=== PATIENT | female | born 1980 | race Caucasian/White ===

== ENCOUNTER 2016-08-28 09:48 | Emergency (ER) | payer MEDICAID ==
--- NOTE | 2016-08-28 09:56 | EDPHY ---
H & P Time Seen by Provider: 08/28/16 09:53 HPI/ROS: CHIEF COMPLAINT: Left middle digit laceration HISTORY OF PRESENT ILLNESS: 36-year-old female HIV positive with undetectable viral load, up-to-date tetanus, arrives via ambulance after she sustained accidental laceration to her left middle digit dorsal aspect at the PIP joint when she was carrying her laundry basket and impacted a metal object. Occurred shortly prior to arrival. No flexor or extensor deficits. No paresthesia. PHYSICAL EXAM (Prior to examination, patient consented to physical exam, hands were washed and my usual and customary physical exam procedures followed) 1) GENERAL: Well-developed, well-nourished, alert and oriented. Appears to be in no acute distress. 2) HEAD: Normocephalic 3) HEENT: sclera anicteric 4) LUNGS: Breathing comfortably. 5) SKIN: left middle digit dorsal aspect PIP joint flap laceration measuring 1 cm with viable flap. 6) MUSCULOSKELETAL: extensor function at the MCP PIP D IP is intact with no deficits 7) NEUROLOGIC: Full sensation Constitutional: Initial Vital Signs Temperature (C) 36.9 C 08/28/16 09:55 Heart Rate 88 08/28/16 09:55 Respiratory Rate 14 08/28/16 09:55 Blood Pressure 137/84 H 08/28/16 09:55 O2 Sat (%) 96 08/28/16 09:55 O2 Delivery Mode Room Air Allergies/Adverse Reactions: carbamazepine [From Tegretol] Allergy (Verified 08/28/16 09:53) duloxetine [From Cymbalta] Allergy (Verified 08/28/16 09:53) Home Medications: Medication Instructions Recorded Cephalexin [Keflex] 500 mg PO TID 5 Days 08/28/16 Cyclobenzaprine 08/28/16 LYRICA 08/28/16 MDM/Departure - MDM Imaging Results: Xray of the left finger interpreted by myself: no definitive acute osseous abnormality Procedures: Procedure: Laceration repair. I explained the indications, risks and benefits for both laceration repair and anesthetic administration. Verbal consent was obtained from the patient . The laceration on the left middle digit was anesthetized using 0.5% bupivicaine without epinephrine digital nerve block. After anesthetic administered the patient was observed for a period of time and had no apparent adverse effects. The wound was cleaned, prepped, draped in normal sterile fashion and explored to its base. No foreign body seen, no foreign bodies palpated. There were no deep structures involved. No tendon injury was identified. The wound edges were reapproximated with 2 simple interrupted 5 O Prolene sutures. The wound repair was simple. The procedure was performed by myself. Patient has been informed that scarring will occur, although efforts have been made to minimize this. - Depart Disposition: Home, Routine, Self-Care Clinical Impression: Finger laceration Qualifiers: Encounter type: initial encounter Qualified Code(s): S61.219A - Laceration without foreign body of unspecified finger without damage to nail, initial encounter Condition: Good Instructions: Care For Your Stitches (ED), Laceration (ED) Additional Instructions: Return to the ER if you develop redness, swelling, discharge, warmth to the wound, red streaks going up your arm , or any other symptoms that concern you. Stand Alone Forms: Work Limited Duty Prescriptions: Cephalexin [Keflex] 500 mg PO TID 5 Days Referrals: Return, to the ER in 10 days for suture removal [Other] - As per Instructions
[2016-08-28 09:57] VITALS: BP 137/84; PULSE 88; RESP 14; TEMP 98.4; O2SAT 96
== END 2016-08-28 10:39 | disposition home or self-care (01) ==
LOC: EDUNIT#
PROC: 0HQGXZZ Repair Left Hand Skin, External Approach (ICD-10-PCS; principal; 2016-08-28)
DX: S61.213A Laceration without foreign body of left middle finger without damage to nail, initial encounter (principal); W29.2XXA Contact with other powered household machinery, initial encounter; Y99.8 Other external cause status

== ENCOUNTER → 2016-10-09 | Outpatient (CLI) | payer MEDICAID | LOC: FIMAGING 11:50 | PROVIDERS: ATTEND Nurse Practitioner | DX: M79.642 Pain in left hand (principal) | CPT/HCPCS: 86359-90; 86360-90; 87536-90; G0472 ==

== ENCOUNTER 2016-11-04 10:39 | Emergency (ER) | payer MEDICAID ==
[2016-11-04 10:58] VITALS: TEMP 97.9
--- NOTE | 2016-11-04 13:49 | EDPHY ---
H & P Smoking Status: Former smoker Time Seen by Provider: 11/04/16 12:26 HPI/ROS: CHIEF COMPLAINT: Back pain, abdominal pain HISTORY OF PRESENT ILLNESS: 36-year-old female presents to the emergency department by private vehicle complaining of central low back pain and lower abdominal pain that began 2 days ago. Her period started 2 days ago as well which was normal and on time. Patient has a history of fibromyalgia and chronic pain and ran out of her Lyrica 2 days ago. She feels nauseous although no vomiting or diarrhea. She has chronic neck and back pain as well as chronic pain in her upper and lower extremities secondary to her fibromyalgia. She denies any known new trauma or injury. She denies chest pain or difficulty breathing. She states that she has not filled her Lyrica prescription because her doctor has not called in. REVIEW OF SYSTEMS: Constitutional: No fever, no chills. Eyes: No double or blurry vision. ENT: No sore throat. Respiratory: No cough, no shortness of breath. Cardiac: No chest pain. Gastrointestinal: Abdominal pain as above. No vomiting or diarrhea Genitourinary: No dysuria. Musculoskeletal: Chronic neck and back pain. Skin: No rashes. Neurological: No headache. (Tracey Ortega) Past Medical/Surgical History: HIV positive, chronic pain, fibromyalgia (Tracey Ortega) Social History: and lives in [place] (Tracey Ortega) Physical Exam: General Appearance: Alert, moderate distress. Tearful. Eyes: Pupils equal and round. Extraocular motions are all intact. ENT: Mouth: Mucous membranes moist. Respiratory: No wheezing, rhonchi, or rales, lungs are clear to auscultation. Cardiovascular: Regular rate and rhythm. Gastrointestinal: Abdomen is obese and soft. She has tenderness with palpation both in the left and the right lower quadrant as well as in the suprapubic area. There is no rebound, guarding or masses noted. No CVA tenderness bilaterally. Neurological: Alert and oriented x 3, cranial nerves II through XII grossly intact Skin: Warm and dry, no rashes. Musculoskeletal: Nontender to palpate along the cervical or thoracic spine. She does have tenderness with palpation overlying lumbar spine. No palpable crepitus or other bony abnormality. Extremities: Full range of motion and no peripheral edema. Psychiatric: Patient is oriented X 3, there is no agitation. (Tracey Ortega) Constitutional: Initial Vital Signs Temperature (C) 36.6 C 11/04/16 10:55 Heart Rate 84 11/04/16 10:55 Respiratory Rate 20 11/04/16 10:55 Blood Pressure 117/89 H 11/04/16 10:55 O2 Sat (%) 98 11/04/16 10:55 O2 Delivery Mode Room Air Allergies/Adverse Reactions: bupropion [From Wellbutrin] Allergy (Verified 11/04/16 10:53) carbamazepine [From Tegretol] Allergy (Verified 11/04/16 10:53) duloxetine [From Cymbalta] Allergy (Verified 11/04/16 10:53) Home Medications: Medication Instructions Recorded Cyclobenzaprine 08/28/16 LYRICA 08/28/16 Triumec 11/04/16 Medical Decision Making - Diagnostics Imaging: Discussed imaging studies w/ scallop raker Radiologist ED Course/Re-evaluation: 36-year-old female presents to the emergency department with abdominal pain. Her pain started 2 days ago when her menstruations started. The patient had an IV established and was given 15 mg of IV Toradol. She was feeling much better. I did speak with her primary care provider who states that she refilled her Lyrica and this was explained to the patient. Patient was very relieved comfortable being discharged home. (Tracey Ortega) Differential Diagnosis: Including but not limited to dysmenorrhea, endometriosis, ovarian cyst, ovarian torsion, irritable bowel syndrome (Tracey Ortega) - Data Points Laboratory Results: Laboratory Results 11/04/16 15:30 11/04/16 15:30 Medications Given: Discontinued Medications Sodium Chloride (Ns) 1,000 mls @ 0 mls/hr IV ONCE ONE PRN Reason: Wide Open Stop: 11/04/16 14:14 Last Admin: 11/04/16 15:33 Dose: 1,000 mls Ketorolac Tromethamine (Toradol) 15 mg IVP EDNOW ONE Stop: 11/04/16 14:14 Last Admin: 11/04/16 15:33 Dose: 15 mg Lidocaine (Lidoderm 5%) 1 ea TD EDNOW ONE Stop: 11/05/16 14:30 Last Admin: 11/04/16 14:49 Dose: 1 ea Departure - Departure Disposition: Home, Routine, Self-Care Clinical Impression: Musculoskeletal back pain, Abdominal pain, Fibroid Condition: Good Instructions: Uterine Fibroids (ED), Acute Low Back Pain (ED), Abdominal Pain ( ED) Additional Instructions: Ibuprofen 600 mg every 8 hours as needed for pain. You should not need any additional ibuprofen today since your given IV Toradol for pain. Follow up with primary care provider as discussed next week. Return to the emergency department if you developed recurring abdominal pain or if you feel worse in any way. Continue Lyrica as prescribed. Referrals: Sadie Smith MD [Primary Care Provider] - As per Instructions
[2016-11-04] MEDS ORDERED: NS 1,000 ML IV ONE (14:13)
[2016-11-04] MEDS ORDERED: KETOROLAC 30 MG/1 ML SDV IVP ONE (14:13)
[2016-11-04] MEDS ORDERED: LIDOCAINE 5% 1 EA PATCH TD ONE (14:45)
[2016-11-04 15:40] LABS: % IMMATURE GRANULYOCYTES 0.3 % (0.0-1.1); ABSOLUTE IMMATURE GRANULOCYTES 0.02 10^3/uL (0.00-0.10); ADD DIFF? NO; ADD MORPH? NO; ADD SCAN? NO; ATYPICAL LYMPHOCYTE FLAG 0 (0-99); FRAGMENT RBC FLAG 0 (0-99); HEMATOCRIT 42.9 % (38.0-47.0); HEMOGLOBIN 14.9 g/dL (12.6-16.3); LEFT SHIFT FLG 0 (0-99); LIPEMIA HEMOLYSIS FLAG 90 (0-99); MEAN CELL HEMOGLOBIN 31.6 pg (27.9-34.1); MEAN CELL HEMOGLOBIN CONCENTR. 34.7 g/dL (32.4-36.7); MEAN CELL VOLUME 90.9 fL (81.5-99.8); PLATELET CLUMPS FLAG 10 (0-99); PLATELET COUNT 290 10^3/uL (150-400); RED BLOOD CELL COUNT 4.72 10^6/uL (4.18-5.33); RED CELL DISTRIBUTION WIDTH 13.1 % (11.5-15.2)
[2016-11-04 15:49] VITALS: RESP 16
[2016-11-04 15:52] LABS: ANION GAP 13 mEq/L (8-16); CALCIUM 9.8 mg/dL (8.5-10.4); CARBON DIOXIDE 21 mEq/l (22-31); CHLORIDE 111 mEq/L (97-110); CREATININE 0.9 mg/dL (0.6-1.0); GLOMERULAR FILTRATION RATE > 60; GLUCOSE 83 mg/dL (70-100); SODIUM 145 mEq/L (134-144)
[2016-11-04 16:39] VITALS: BP 124/75; PULSE 73; O2SAT 99
[2016-11-04] MEDS ORDERED: PATCH REMOVAL 1 EA PATCH TD SCH (21:00)
[2016-11-05] MEDS ORDERED: LIDOCAINE 5% 1 EA PATCH TD ONE (14:29)
== END 2016-11-04 16:37 | disposition home or self-care (01) ==
DX: D25.9 Leiomyoma of uterus, unspecified (principal); Z87.891 Personal history of nicotine dependence
CPT/HCPCS: 96374; J1885

== ENCOUNTER 2017-10-01 12:29 | Observation (INO) | payer MEDICAID ==
--- NOTE | 2017-10-01 12:49 | EDPHY ---
H & P Stated Complaint: headache Time Seen by Provider: 10/01/17 12:48 - Personal History LMP (Females 10-55): 1-7 Days Ago Current Tetanus/Diphtheria Vaccine: Yes Current Tetanus Diphtheria and Acellular Pertussis (TDAP): Yes Tetanus Vaccine Date: last 10years - Medical/Surgical History Hx Asthma: No Hx Chronic Respiratory Disease: No Hx Diabetes: No Hx Cardiac Disease: No Hx Renal Disease: No Hx Cirrhosis: No Hx Alcoholism: No Hx HIV/AIDS: Yes Hx Splenectomy or Spleen Trauma: No Other PMH: HIV + chronic pain/fibromyalgia/degenerative disc disease - Social History Smoking Status: Former smoker Constitutional: Initial Vital Signs Temperature (C) 36.9 C 10/01/17 12:36 Heart Rate 88 10/01/17 12:36 Respiratory Rate 18 10/01/17 12:36 Blood Pressure 109/84 H 10/01/17 12:36 O2 Sat (%) 99 10/01/17 12:36 O2 Delivery Mode Room Air Allergies/Adverse Reactions: bupropion [From Wellbutrin] Allergy (Verified 11/04/16 10:53) carbamazepine [From Tegretol] Allergy (Verified 11/04/16 10:53) duloxetine [From Cymbalta] Allergy (Verified 11/04/16 10:53) Home Medications: Medication Instructions Recorded Pregabalin [Lyrica 150mg (*)] 300 mg PO BID 08/28/16 Abacavir/Dolutegravir/Lamivudi 1 each PO DAILY 10/01/17 [Triumeq Tablet] Acetaminophen/ASA/Caffeine 1 each PO DAILY PRN 10/01/17 [Excedrin Tablet (*)] Amitriptyline HCl [Elavil 50 mg 50 mg PO HS 10/01/17 (*)] Hydrocodone/Acetaminophen [[place] 1 tab PO Q6H PRN 10/01/17 5/325 (*)] Meloxicam 15 mg PO DAILY 10/01/17 Methocarbamol [Robaxin 750 mg (*)] 1,500 mg PO BID 10/01/17 Medical Decision Making - Diagnostics Imaging: Discussed imaging studies w/ call center dispatcher Radiologist ED Course/Re-evaluation: CHIEF COMPLAINT: Headache HISTORY OF PRESENT ILLNESS: This patient is a 37 year old female with history of type 1 Chiari malformation complaining of headache. Her Chiari malformation was discovered two years ago during an MRI of her cervical spine in December 2014. Over the past several months , she has been having more frequent headaches. She followed up with Dr. Dobbins, neurosurgeon, and is scheduled for MRI of the brain and CSF flow tomorrow. This morning, she woke vomiting due to pain. She states "I felt like somebody blew my head off and I lived". Currently, she still has a headache and nausea. She is concerned that there have been changes with her syrinx at C3-T2 or that there have been other additional developments with her Chiari malformation. She denies fever, chest pain, shortness of breath, abdominal pain, diarrhea, or other worsening of condition. REVIEW OF SYSTEMS: A 10 point review of systems was performed and is negative with the exception of the elements mentioned in the history of present illness. PHYSICAL EXAM: HR, BP, O2 Sat, RR. Temp noted General Appearance: Alert, well hydrated, appropriate, and non-toxic appearing. Head: Atraumatic without scalp tenderness or obvious injury Eyes: Pupils equal, round, reactive to light and accommodation, EOMI, no trauma , no injection. Ears: Clear bilaterally, no perforation, normal landmarks Nose: Atraumatic, no rhinorrhea, clear. Throat: There is no erythema or exudates, no lesions, normal tonsils, mucus membranes moist. Neck: Supple, 2+ carotid upstroke, nontender, no lymphadenopathy. Respiratory: No retractions, no distress, no wheezes, and no accessory muscle use. Lungs are clear to auscultation bilaterally. Cardiovascular: Regular rate and rhythm, no murmurs, rubs, or gallops. Bilateral carotid, radial, dorsalis pedis, and posterior tibial pulses intact. Good capillary refill all extremities. Gastrointestinal: Abdomen is soft, nontender, non-distended, no masses, no rebound, no guarding, no peritoneal signs. Musculoskeletal: Normal active ROM of all extremities, atraumatic. Neurological: Alert, appropriate, and interactive. The patient has normal DTRs and non-focal cranial nerves, motor, sensory, and cerebellar exam. Skin: No rashes, good turgor, no nodules on palpation. Past medical history: Chiari malformation type 1. HIV. Chronic pain. Fibromyalgia. Degenerative disc disease. Past surgical history: Noncontributory Family history: Noncontributory. Social history: Daughter at bedside. Employed. Neurosurgeon: Dr. Dobbins DIFFERENTIAL DIAGNOSIS: The differential diagnosis for the patient's headache included but was not limited to chiari malformation, subarachnoid hemorrhage, migraine headache, tension headache and infectious causes such as meningitis, pharyngitis and sinusitis. MEDICAL DECISION MAKING: This 37 y/o female with Chiari malformation presents with severe headache onset this morning. Plan to consult with the patient's neurosurgeon regarding imaging studies for this patient, as she was scheduled to have one tomorrow. Plan to administer 10mg IV Reglan, 10mg IV Decadron, 30mg IV Ketorolac, 4mg IV Zofran 12:[address] Dobbins, neurosurgeon. 13:[address] Martinez, radiologist. We will perform MRI brain with CSF flow study today to evaluate the patient's Chiari malformation and syrinx. 13:[address] Dobbins, neurosurgeon. We will proceed with MRI brain and CSF flow study. 14:01 Reassessed patient. Her pain remains at a 6/10, which is slightly better than when she arrived. 15:[address] Jefferson, radiologist, MRI brain shows Chiari malformation as in prior studies. Dr. Jones, radiologist, generally reads the CSF flow studies and will be out of office until tomorrow. Full results of this study will remain pending until he returns. Reassessed patient. She continues to complain of headache and nausea. Plan to admit for further management. 15:[address] Dobbins. He will consult the patient during her admission. 15:50 Consulted with hospitalist service. Dr. Cormier accepts admission for Chiari malformation with worsening headache, nausea, and dizziness. - Data Points Medications Given: Acetaminophen/Aspirin/Caffeine (Excedrin Tablet) 1 each PO DAILY PRN PRN Reason: Headache Stop: 03/30/18 17:29 Last Admin: 10/01/17 20:15 Dose: 1 each Amitriptyline HCl (Elavil) 50 mg PO HS PRINCE Stop: 03/30/18 20:59 Last Admin: 10/01/17 20:15 Dose: 50 mg Ketorolac Tromethamine (Toradol) 30 mg IVP Q6HRS PRN PRN Reason: Pain, Moderate Stop: 10/06/17 17:30 Last Admin: 10/01/17 19:48 Dose: 30 mg Methocarbamol (Robaxin) 1,500 mg PO BID PRINCE Stop: 03/30/18 20:59 Last Admin: 10/01/17 20:15 Dose: 1,500 mg Pregabalin (Lyrica) 300 mg PO BID PRINCE Stop: 03/30/18 20:59 Last Admin: 10/01/17 20:15 Dose: 300 mg Sumatriptan Succinate (Imitrex) 25 - 50 mg PO Q6 PRN PRN Reason: Headache, Migrane Stop: 03/30/18 17:31 Last Admin: 10/01/17 18:23 Dose: 50 mg Discontinued Medications Dexamethasone (Decadron Injection) 10 mg IVP EDNOW ONE Stop: 10/01/17 12:56 Last Admin: 10/01/17 13:39 Dose: 10 mg Diphenhydramine HCl (Benadryl Injection) 25 mg IVP EDNOW ONE Stop: 10/01/17 12:56 Last Admin: 10/01/17 13:39 Dose: 25 mg Hydromorphone HCl (Dilaudid) 1 mg IVP EDNOW ONE Stop: 10/01/17 16:39 Last Admin: 10/01/17 16:55 Dose: 1 mg Ketorolac Tromethamine (Toradol) 30 mg IVP EDNOW ONE Stop: 10/01/17 12:56 Last Admin: 10/01/17 13:39 Dose: 30 mg Metoclopramide HCl (Reglan Injection) 10 mg IVP EDNOW ONE Stop: 10/01/17 12:56 Last Admin: 10/01/17 13:39 Dose: 10 mg Ondansetron HCl (Zofran) 4 mg IVP EDNOW ONE Stop: 10/01/17 12:56 Last Admin: 10/01/17 13:39 Dose: 4 mg Ondansetron HCl (Zofran) 4 mg IVP EDNOW ONE Stop: 10/01/17 16:39 Last Admin: 10/01/17 16:55 Dose: 4 mg Departure - Departure Disposition: [facility] Clinical Impression: Arnold-Chiari malformation, type I, Nausea, Dizziness Headache Qualifiers: Headache type: unspecified Headache chronicity pattern: acute headache Intractability: not intractable Qualified Code(s): R51 - Headache Condition: Fair Report Scribed for: Rodolfo Castaneda Report Scribed by: Annamarie Zhou Date of Report: 10/01/17 Time of Report: 12:49
[2017-10-01] MEDS ORDERED: METOCLOPRAMIDE 10 MG/2 ML VIAL IVP ONE (12:55)
[2017-10-01] MEDS ORDERED: DEXAMETHASONE 10 MG/ML VIAL IVP ONE (12:55)
[2017-10-01] MEDS ORDERED: ONDANSETRON 4 MG/2 ML VIAL IVP ONE ×2 (12:55→16:38)
[2017-10-01] MEDS ORDERED: KETOROLAC 30 MG/1 ML SDV IVP ONE (12:55)
[2017-10-01] MEDS ORDERED: ONDANSETRON 4 MG/2 ML VIAL IVP PRN (16:13)
[2017-10-01] MEDS ORDERED: ACETAMINOPHEN 325 MG TAB PO PRN (16:13)
[2017-10-01] MEDS ORDERED: HYDROmorphONE/DILAUDID 1 MG/ML INJ IVP ONE (16:38)
[2017-10-01] MEDS ORDERED: HYDROmorphONE/DILAUDID 1 MG/ML INJ ONE (16:39)
[2017-10-01] MEDS ORDERED: ACETAMINOPHEN/ASA/CAFFEINE 1 EACH TAB PO PRN (17:30)
[2017-10-01] MEDS ORDERED: diphenhydrAMINE 50 MG CAP PO PRN (17:31)
[2017-10-01] MEDS ORDERED: PROMETHAZINE HCL 25 MG TAB PO PRN (17:32)
[2017-10-01] MEDS ORDERED: PROMETHAZINE HCL 25 MG/ML INJ IVP PRN (17:32)
--- NOTE | 2017-10-01 17:43 | PDGENHP ---
History and Physical - Chief Complaint Acute headache - History of Present Illness PCP: Dr. Guardado Primary Neuro: [facility] Primary NSGY: Dr. Dobbins Primary ID: Caitie Miller HPI: 37 yo F p/w acute headache characterized as pressure located in the posterior base w/ frontal sharp foci of pain associated w/ nausea, vomiting, tremulousness, and is the worst headache of her life. Onset of present symptoms 2:30 a.m. on 10/01/17, and duration has been persistent thereafter. Mildly alleviated by ibuprofen/vicodin/lyrica taken this AM, significantly exacerbated by activity at work. While she was at work, symptoms escalated, resulted in diaphoresis, shaking, and EMS assistance. These symptoms are in the setting of several months of similar headaches of lesser severity, being evaluated by Dr. Dobbins. She has recently experienced night sweats, but denies any overt fevers, cough, diarrhea. She has been taking meloxicam daily, but recently ran out of medication 2 days ago and did not take another NSAID until today. She only rarely takes vicodin, and she does not take triptans or other migraine-modifying medications. History Information - Allergies/Home Medication List Allergies/Adverse Reactions: bupropion [From Wellbutrin] Allergy (Verified 11/04/16 10:53) carbamazepine [From Tegretol] Allergy (Verified 11/04/16 10:53) duloxetine [From Cymbalta] Allergy (Verified 11/04/16 10:53) Home Medications: Pregabalin [Lyrica 150mg (*)] 300 mg PO BID 08/28/16 [Last Taken 10/01/17 07:30] Abacavir/Dolutegravir/Lamivudi [Triumeq Tablet] 1 each PO DAILY 10/01/17 [Last Taken 10/01/17] Acetaminophen/ASA/Caffeine [Excedrin Tablet (*)] 1 each PO DAILY PRN 10/01/17 [ Last Taken 10/01/17 03:00] Amitriptyline HCl [Elavil 50 mg (*)] 50 mg PO HS 10/01/17 [Last Taken 09/30/17] Hydrocodone/Acetaminophen [[place] 5/325 (*)] 1 tab PO Q6H PRN 10/01/17 [Last Taken 10/01/17 07:30] Meloxicam 15 mg PO DAILY 10/01/17 [Last Taken 10/01/17] Methocarbamol [Robaxin 750 mg (*)] 1,500 mg PO BID 10/01/17 [Last Taken 07:30] I have personally reviewed and updated: family history, medical history, social history, surgical history - Past Medical History Additional medical history: HIV+ w/ last CD4 339. Arnold Chiari Type I. Fibromyalgia/Chronic pain syndrome. Reported migraine disorder x 6 years - Surgical History Additional surgical history: no head or neck surgeries - Family History Additional family history: maternal side with migraines - Social History Smoking Status: Former smoker Alcohol Use: None Drug Use: None Additional social history: independent in ADLs Review of Systems Review of Systems: ROS: 10pt was reviewed & negative except for what was stated in HPI & below Constitutional: Reports: chills, malaise Gastrointestinal: Reports: vomitting, nausea Neurological: Reports: headache Physical Exam Physical Exam: Temp Pulse Resp BP Pulse Ox 36.9 C 71 16 112/77 97 10/01/17 16:56 10/01/17 17:22 10/01/17 17:22 10/01/17 17:22 10/01/17 17:22 O2 (L/minute) 2 Constitutional: no apparent distress, chronically ill appearing, uncomfortable, No not in pain (moderate 4/10) Eyes: PERRL, anicteric sclera, EOMI Ears, Nose, Mouth, Throat: moist mucous membranes, hearing normal, ears appear normal, no oral mucosal ulcers Cardiovascular: systolic murmur (I/ at sternum), No irregularly irregular, No carotid bruit, No tachycardia, No edema Respiratory: no respiratory distress, no rales or rhonchi, clear to auscultation Gastrointestinal: normoactive bowel sounds, soft, non-tender abdomen, no palpable masses Skin: other (tattoos), No abrasion, No rash Musculoskeletal: other (mild tenderness in bilat posterior cervical paraspinal muscles, full ROM neck w/ minimal discomfort on flexion) Neurologic: AAOx3, CN II-XII Intact, No sensation intact bilaterally ( subjective LLE paresthesia), No weakness (motor 5/5 all ext) Psychiatric: not encephalopathic, thought process linear, anxious, No agitated Assessment & Plan Assessment: 37 yo F p/w acute on chronic headache in setting of Arnold-Chiari Malformation Type I and HIV Plan: # Headache. Acute on chronic, new problem, further w/u indicated. Potential etiologies include Chiari-Malformation vs. migraine vs. functional pain disorder vs. HIV-related infxn (less likely) vs. aseptic meningitis from NSAID withdraw - d/w Dr. Dobbins, we agree that there may be overlay between A-C malformation + functional pain/migraine disorder, and plan is for MRI brain w/ CSF flow study for further characterization - will hold on LP as this could be very dangerous and result in herniation, and the pre-test prob of cryptococcal meningitis is low since her CD4 was 339 (outside records reviewed) - supportive pain mgmt w/ toradol, benadryl/phenergan, imitrex, and suggest that she may want to trial a chronic migraine-modifying Rx such as topamax - check CBC/CMP # Arnold-Chiari Type I malformation. Reviewed outside records (MRI 12/15/[address] Jefferson, demonstrates chord impingement in upright and flexed positions , particularly C5-C6) - per Dr. Castaneda, will require surgery at some juncture, but does not completely account for her entire constellation of symptoms # HIV. Chronic, cont current Rx - get ID consultation for further consideration of atypical infxn causes of ORDOÑEZ + her other systemic symptoms # Fibromyalgia and chronic pain syndrome. Cont lyrica and other home Rx Diet. Regular PPx. Low risk, SCDs Code. Full Dispo. ADD 10/02, pending improvement in headache. If patient requires surgery for A-C malformation, will require upgrade to inpatient status.
[2017-10-01] MEDS: SUMAtriptan 25 MG TAB PO PRN (18:23)
[2017-10-01 19:45] LABS: PLATELET COUNT 269 10^3/uL (150-400)
[2017-10-01] MEDS: KETOROLAC 30 MG/1 ML SDV IVP PRN (19:48)
[2017-10-01] MEDS: METHOCARBAMOL 750 MG TAB PO SCH (20:15)
[2017-10-01] MEDS: PREGABALIN 150 MG CAP PO SCH (20:15)
--- NOTE | 2017-10-01 20:43 | GCON ---
[f rep st] CONSULTATION NEUROSURGERY CONSULT NOTE. DATE OF CONSULTATION: 10/01/2017 The patient was seen and evaluated at 4:30 p.m. in the ER at [facility]. HPI: The patient is a 37-year-old woman, who is known to me, as I had seen her in clinic previously. She has a long history of headaches, as well as a number of other more nebulous complaints. She re cently had an MRI of her cervical spine, which showed a very small cervical syrinx, for which she was sent to me. Upon review of these images, she also has a large Chiari I malformation with crowding o f the posterior fossa. This, apparently, was actually discovered 2 years ago on an MRI in 2014, but for the past several months, she has been having more headaches. She is actually scheduled for a CSF flow study, which was ordered by me, for tomorrow, but the patient was having vomiting, headache, pa in, which was quite severe. She was tearful, so she presented to the emergency department. She stat es that she felt like somebody shot her in the head, but she lived. Her main complaints at this time are her usual numbness and tingling of the arms and legs, as well as severe headaches and nausea; ho wever, the headaches have improved a bit at this time. She has also been complaining of dizziness an d vomiting recently, and I am not sure what might be the etiology of this problem. She denies any re cent fevers or chest pain. She has had some chills and been feeling freezing cold. She, otherwise, denies abdominal pain, diarrhea, or other major problem. REVIEW OF SYSTEMS: A 10-point review of systems was negative other than that described above in the HPI. PAST MEDICAL HISTORY: 1. Chiari malformation, type I. 2. HIV positive. 3. Chronic pain syndrome. 4. Fibromyalgia. 5. Degenerative disk disease. 6. Chronic headaches. PAST SURGICAL HISTORY: None. FAMILY HISTORY: The family history was reviewed with the patient but is noncontributory to this admi ssion. SOCIAL HISTORY: Mother is here with her at the bedside. She is employed. She has a previous histor y of some drug use but denies current drug use. REVIEW OF SYSTEMS: A 10-point review of systems was negative other than that described above in the HPI. ALLERGIES: 1. Wellbutrin. 2. Tegretol. 3. Cymbalta. MEDICATIONS: 1. Lyrica. 2. Triumeq. 3. Amitriptyline. 4. Meloxicam. 5. Robaxin. PHYSICAL EXAM: Currently, she is afebrile with normal, stable vital signs. She is awake, alert, and oriented x3. Pupils are equal, round, and react to light. Extraocular movements are intact. Face is symmetric. Tongue is midline. She has 5/5 strength at the deltoid, biceps, triceps, wrist flexio n, extension, and registered nurse midwife bilaterally. In the lower extremities, she has 5/5 strength of the hip flexor s, extensors; knee flexors, extensors; and plantar and dorsiflexion bilaterally. Her sensation is gr ossly intact, although she does complain of some patchy numbness and tingling over the arms and legs on both sides. She also complains of some paresthesias in a cape-like distribution over her back, wh ich is consistent with her syrinx. The deep tendon reflexes are unremarkable. IMAGING REVIEW: See HPI. She did have a CSF flow study performed in the ER here today; however, thi s has not been read, as Dr. Hernandez, the radiologist, will be in tomorrow to read this study. ASSESSMENT/PLAN: The patient is a 37-year-old woman, who presents with a number of complaints, inclu ding headaches, nausea, vomiting, and a cold feeling. She has a known Chiari I malformation, which w e are trying to workup and possibly offer her surgery for as an outpatient. I think this Chiari may explain some of her headaches, and the syrinx can explain some of her paresthesias, but it does not e xplain dizziness, vomiting, or some of the other complaints that she has. She is going to be admitte d to the medicine service for a more thorough workup. We will follow along with this. We will take a look at the flow study tomorrow after Dr. Hernandez has a chance to read this, and we can make furthe r surgical plans at that time. I do expect that this will be positive, and she will have some anatom ic blockade of the CSF flow at that level. If she is feeling better, she can be discharged home for further surgery as an outpatient, but we will follow along and see how she does while she is here. Please do not hesitate to contact us with any further questions or concerns. Thanks for the kind con sultation. /[id number]/MODL
[2017-10-01] MEDS ORDERED: AMITRIPTYLINE HCL 50 MG TAB PO SCH (21:00)
[2017-10-01] MEDS: HYDROCODONE/APAP 5/325 TAB PO PRN (21:35)
[2017-10-01] MEDS: ONDANSETRON DISINTEGRATING 4 MG TAB PO PRN (21:36)
[2017-10-02] MEDS: KETOROLAC 30 MG/1 ML SDV IVP PRN ×2 (01:14→07:52)
[2017-10-02] MEDS: ONDANSETRON DISINTEGRATING 4 MG TAB PO PRN (01:15)
[2017-10-02] MEDS: SUMAtriptan 25 MG TAB PO PRN ×3 (01:18→15:01)
[2017-10-02] MEDS: HYDROCODONE/APAP 5/325 TAB PO PRN ×2 (06:06→12:19)
--- NOTE | 2017-10-02 07:38 | NEUSURGPN ---
Assessment/Plan: Assessment: 37 yo female that is a known patient of [facility] of Dr Solano that presents with HAs and neck pain. She has a hx of a Chiari malformation and syrinx Plan: -pt states that she continues to have a ORDOÑEZ that is as at the 5/10 level now. She had a flow study done on 10/01 -I will review the flow study with Dr Dobbins -continue with current pain management with IM -will discuss plan with Dr Dobbins -continue with PT/OT -pt with some left sided neck pain and no UE/LE complaints, she states that she fell while getting into the ambulance yesterday. I will check some xrays of the C spine -warning signs given -call with any questions or concerns -pt understands and agrees Subjective: Awake and alert. NAD. Pt states HAs are better. No f/c/n/v/d. Objective: AAO x 3, PERRLA/EOMI no droop CN 2-12 grossly intact +lt touch 5/5 BUE/BLE = Neuro Check Frequency: per routine Urinary Catheter in Place: No - Physician Discussed Patient with : Mu Patient Seen by : [facility] Neurosurgery Physical Exam - Vitals, I&O, Labs I and O 10/01/17 10/02/17 10/03/17 05:59 05:59 05:59 Intake Total 1000 Output Total 1900 Balance -900 Weight 102.058 kg Intake: IV Infused (ml) 1000 Output: Urine (ml) 1900 Toilet 1900 Other: Intake Quantity Yes Sufficient Number of Voids 3 Toilet 1 1 Vital Signs Temp Pulse Resp BP Pulse Ox 36.5 C 65 16 114/71 94 10/02/17 03:35 10/02/17 03:35 10/02/17 03:35 10/02/17 03:35 10/02/17 03:35 Laboratory Results 10/01/17 19:30 10/01/17 19:30 ICD10 Worksheet Patient Problems: Problems Problem Status Onset Arnold-Chiari malformation, type I Acute Dizziness Acute Headache Acute Nausea Acute
[2017-10-02] MEDS: METHOCARBAMOL 750 MG TAB PO SCH (07:50)
[2017-10-02] MEDS: PREGABALIN 150 MG CAP PO SCH (07:51)
[2017-10-02] MEDS ORDERED: ABACAVIR PO SCH (09:00)
[2017-10-02] MEDS ORDERED: DOLUTEGRAVIR PO SCH (09:00)
[2017-10-02] MEDS ORDERED: LAMIVUDI PO SCH (09:00)
[2017-10-02] MEDS ORDERED: oxyCODONE IR 5 MG TAB ONE (10:34)
[2017-10-02] MEDS: oxyCODONE IR 5 MG TAB PO PRN ×2 (10:58→14:52)
--- NOTE | 2017-10-02 11:41 | ASMTCMCOM ---
CM Note CM Note Notes: Cart reviewed. 37 year old female admitted via ED with c/o headache, nausea and vomiting. Known Chiari malformation. Flow study being evaluated by neurosurgery. Headache better today per patient. Met with patient who normally lives here in [place], works at [employer], has mother who is local for support. She has outpatient services that help support her HIV status with meeting financial responsibilities. PT and OT pending. No current needs identified. CM available should needs arise. Plan: Likely home without needs. Date Signed: 10/02/2017 11:41 AM Electronically Signed By:Fariha Lopez RN
[2017-10-02 12:10] VITALS: BP 129/82
--- NOTE | 2017-10-02 15:08 | PDDCSUM ---
Discharge Summary Discharge Summary: DISCHARGE SUMMARY FOLLOW-UP ITEMS: Ongoing outpatient workup and management of chronic pain syndrome DATE OF ADMISSION: 10/01/2017 DATE OF DISCHARGE: 10/02/2017 DISCHARGE DIAGNOSES: 1. Acute on chronic headache 2. Arnold-Chiari type 1 malformation 3. Chronic HIV 4. Chronic pain syndrome CONSULTATIONS: Neurosurgery PROCEDURES / IMAGING: MRI brain with CSF flow study, x-ray of cervical spine CHIEF COMPLAINT: Acute on chronic headache SUBJECTIVE: Patient reports that headache has improved, has ongoing body pain PHYSICAL EXAM ON DISCHARGE: Systolic blood pressure 110-130, heart rate 69, afebrile overnight, satting on room air, alert awake oriented x3, chronically ill-appearing LABS ON DISCHARGE: CBC and complete metabolic profile are both normal HOSPITAL COURSE BY PROBLEM: 1. Acute on chronic headache. Although the patient has underlying Arnold- Chiari type 1 malformation, it is unlikely that this malformation is the specific cause of her acute worsening of chronic headaches. She was evaluated with an MRI and CSF flow study which did demonstrate an issue which should receive surgical intervention in the near future, but it did not demonstrate any emergent obstruction or herniation requiring emergent surgery. We consulted with Dr. Daniel Dobbins, and he will see the patient in follow-up next week, to scheduled surgery. Regarding the exact cause of the acute worsening, it is possible the patient may be experiencing some sinus congestion and resultant pressure, secondary to seasonal environmental precipitants, and I have recommended utilizing a Benadryl and Mucinex regularly over the next week to alleviate sinus congestion which was present on MRI. I am also concerned that the patient has a chronic headaches, and although she reports that the may be migrainous in nature, is unclear whether these are actually migrainous or a constellation of pain symptoms in the setting of her chronic pain syndrome. I recommended introduction of low-dose Topamax nightly, and this can be up titrated the outpatient setting. I recommended that she follow up regularly with an outpatient provider, either Neurology practice of [facility], or PCP, to establish ownership over the symptoms and work on chronic management. She notably did experience a fall from the EMS stretcher prior to her arrival, and she did undergo a cervical spine x-ray which demonstrated no evidence of fracture, some degenerative changes which were known from prior imaging studies. 2. Chronic HIV. Patient was continued on her home medications and given that the patient has no signs of infection, no meningeal findings on physical exam, it is unlikely that the patient has cryptococcal meningitis or other infectious etiology as the cause of her headache symptoms. I also discussed with Dr. Dobbins whether a lumbar puncture would be safe in this patient, and he reports that in the setting of her Chiari malformation, it is a high risk procedure, with low likelihood of demonstrating etiology of her headache. 3. Chronic pain syndrome. Most likely cause of patient's diffuse body pain is a chronic pain syndrome, and although she has been previously diagnosed with fibromyalgia, the patient currently does not have specific outpatient follow-up and outpatient ulnar ship over this issue, leading to increased distress on the patient's part and difficulty managing her symptoms. She is currently utilizing high-dose Lyrica, and she is looking for her outpatient provider to seek prior authorization so she can continue receiving this medication, which she feels is beneficial. I would also recommend avoiding regular use of outpatient opiates, as this patient is high risk for establishing opiate dependency and possible misuse. The patient really wants to have an outpatient provider who will primarily manage this issue for her and since both Dr. Dobbins and I believe that her pain is unlikely to be solely attributable to her Arnold Chiari Type I malformation, we recommend that the outpatient care be owned by a practice outside of the neurosurgical specialty. The patient was seen consultation by occupational therapy, and she was deemed safe for discharge home. I recommended that the patient continue as much physical activity as she is able to sustain, and not limit her work or physical activity, as limitations often lead to further disability. DISCHARGE MEDICATIONS: Please see official discharge medication reconciliation sheet in chart , Topamax 25 mg nightly, regular use of Benadryl and Mucinex over the next week, continue other home medications. DISCHARGE INSTRUCTIONS: Please follow up with Neurosurgery next week as scheduled, please follow up with PCP within 1 week.
--- NOTE | 2017-10-02 17:13 | GCON ---
[f rep st] CONSULTATION DATE OF CONSULTATION: 10/02/2017 REFERRING PHYSICIAN: REASON FOR REFERRAL: HIV. HISTORY OF PRESENT ILLNESS: Patient is a 37-year-old female with known HIV, who is on a stable anti- retroviral regimen and is virally suppressed, who [facility] secondary to severe headache. Patient has a known Chiari malformation and is being followed by [facility]. She was scheduled for a cerebrospinal fluid flow study, but the headache pr ecluded this. 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 She is being followed i npatient, as well, by Neurosurgery and they are making recommendations. At this point, she follows u p regularly at the [facility] for HIV care. She is virally suppressed and does not give any sympt oms consistent with opportunistic infections. PAST MEDICAL HISTORY: 1. HIV. 2. Arnold-Chiari type 1 malformation. 3. Fibromyalgia/chronic pain syndrome. 4. Migraine disorder. PAST SURGICAL HISTORY: None noted. ANTIBIOTICS: None currently. ALLERGIES: The patient is allergic to bupropion, carbamazepine, and duloxetine. SOCIAL HISTORY: The patient is a former tobacco user. No alcohol or drug use noted. FAMILY HISTORY: Reviewed but noncontributory. REVIEW OF SYSTEMS: Other than that detailed above in history of present illness, a comprehensive 10- system review is negative. PHYSICAL EXAMINATION: VITAL SIGNS: Temperature maximum is 36, temperature current is 36.6, heart ra te is 58, respiratory rate is 16, blood pressure is 129/82. GENERAL: The patient is a well-formed, well-nourished overweight female in no acute distress. She is not toxic in appearance. She is alert and oriented x3. She is pleasant in demeanor. HEENT: Normocephalic for age. Atraumatic. No scle ral icterus. No oral lesion or drainage from the nares. Eyes: Lids and conjunctivae are within nor mal limits. Pupils are equal and round bilaterally. NECK: Supple. No meningismus. LUNGS: Clear to auscultation bilaterally. Good effort. HEART: Regular rate and rhythm. No significant peripher al edema. SKIN: Warm and dry to the touch. No rash or lesion noted. LABORATORY DATA: The patient has a CBC dated 10/01/2017 that shows a white blood cell count of 6.9, hemoglobin 14.4, hematocrit of 41.0, and platelet count 269. Differential is mildly left-shifted wit h 84% segmented neutrophils. Serum chemistries on 10/01/2017 are all within normal limits. ASSESSMENT: 1. 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 Would follow neurosurgical recommendations. 2. Human immunodeficiency virus disease. Patient is stable on regimen. No indications that human i mmunodeficiency virus or opportunistic infection is influencing this presentation. She has a sched ed followup appointment for next week at [facility] for her disease. PLAN: No acute infectious disease issues. Will have her continue to follow up as scheduled for her HIV disease. /[id number]/MODL
== END 2017-10-02 15:06 | disposition home or self-care (01) ==
LOC: EDUNIT# → OBSVTOIN 15:44 → INTOOBSV 15:44 → F3N 17:30
PROVIDERS: ADMIT Internal Medicine; ATTEND Internal Medicine
DX: R51 Headache (principal); G89.4 Chronic pain syndrome; G93.5 Compression of brain; G95.0 Syringomyelia and syringobulbia; M79.7 Fibromyalgia; R11.2 Nausea with vomiting, unspecified; R42 Dizziness and giddiness; M51.36 Other intervertebral disc degeneration, lumbar region; M50.30 Other cervical disc degeneration, unspecified cervical region; Z87.891 Personal history of nicotine dependence; Z21 Asymptomatic human immunodeficiency virus [HIV] infection status
CPT/HCPCS: 70551; 72040; 96374; 96375; 97166; 99285; G0378; J1100; J1170; J1200; J1885; J2405; J2765

== ENCOUNTER 2017-10-22 09:47 | Inpatient (IN) | payer MEDICAID ==
[~2017-10-22 09:47] MED LIST: BACITRACIN ZINC 14.2 GM OINTTUBE TP ONE; BUPIVACAINE 0.25% 30 ML SDV ONE; CHLORHEXIDINE GLUC HIBICLENS 118 ML BTL TP ONE; EPINEPHrine 1 MG/ML INJ ONE; GENTAMICIN SULFATE 80 MG/2 ML VIAL ONE; THROMBIN (BOVINE) 5,000 UNIT VIAL TP ONE
[2017-10-22] MEDS ORDERED: ceFAZolin 2 GM/DEXTROSE 100 ML IV ONE (10:12)
[2017-10-22] MEDS ORDERED: morphINE SR 15 MG TAB PO ONE (10:12)
[2017-10-22] MEDS ORDERED: ACETAMINOPHEN 500 MG TAB PO ONE (10:12)
[2017-10-22] MEDS ORDERED: GABAPENTIN 300 MG CAP PO ONE (10:12)
[2017-10-22] MEDS ORDERED: LR 1,000 ML IV ONE (10:14)
[2017-10-22] MEDS ORDERED: LIDOCAINE 1% 2 ML INJ ID PRN (10:14)
[2017-10-22] MEDS ORDERED: niCARdipine/NACL/200 ML BAG IV ONE (11:15)
[2017-10-22] MEDS ORDERED: fentaNYL 100 MCG/2 ML INJ ONE ×3 (11:16→15:06)
[2017-10-22] MEDS ORDERED: PROPOFOL/EMULSION 500 MG/50 ML BOTTLE IV ONE ×2 (11:16→13:13)
[2017-10-22] MEDS ORDERED: REMIFENTANIL HCL 1 MG VIAL ONE ×2 (11:16→13:50)
[2017-10-22] MEDS ORDERED: MIDAZOLAM 2 MG/2 ML VIAL IVP ONE (11:24)
--- NOTE | 2017-10-22 11:36 | PDHPUP ---
History & Physical Update H&P update statement: This history and physical update is based on an assessment of the patient which was completed after admission or registration (within 24 hours), but prior to the surgery/procedure. H&P update: H&P reviewed & patient examined, no change in patient's condition since H&P completed
--- NOTE | 2017-10-22 11:41 | PDANEPAE ---
ANE History of Present Illness chiarii malformation ANE Past Medical History - Cardiovascular History Hx Hypertension: No Hx Arrhythmias: No Hx Chest Pain: No Hx Coronary Artery / Peripheral Vascular Disease: No Hx CHF / Valvular Disease: No Hx Palpitations: No - Pulmonary History Hx COPD: No Hx Asthma/Reactive Airway Disease: No Hx Recent Upper Respiratory Infection: No Hx Oxygen in Use at Home: No Hx Sleep Apnea: No Sleep Apnea Screening Result - Last Documented: Negative Pulmonary History Comment: sports induced asthma- instructed pt to bring pro air inhaler with her - Neurologic History Hx Cerebrovascular Accident: No Hx Seizures: No Hx Dementia: No Neurologic History Comment: DDD. Type 1 chiari malformation. lumbar disc herniation. n/t to bilateral arms, legs, feet and hands - Endocrine History Hx Diabetes: No Obesity: yes, moderate - Renal History Hx Renal Disorders: No - Liver History Hx Hepatic Disorders: No - Neurological & Psychiatric Hx Hx Neurological and Psychiatric Disorders: Yes Neurological / Psychiatric History Comment: depression - Cancer History Hx Cancer: No - Congenital Disorder History Hx Congenital Disorders: No - GI History Hx Gastrointestinal Disorders: No - Other Health History Other Health History: wears glasses. chronic pain - Chronic Pain History Chronic Pain: Yes (chronic pain, headaches) - Surgical History Prior Surgeries: tonsillectomy in 5th grade. tubal 08/2004 ANE Review of Systems Review of Systems: - Exercise capacity METS (RN): 4 METS ANE Patient History - Allergies Allergies/Adverse Reactions: bupropion [From Wellbutrin] Allergy (Verified 10/21/17 12:42) n/v carbamazepine [From Tegretol] Allergy (Verified 10/21/17 12:42) feels like bugs are crawling on her duloxetine [From Cymbalta] Allergy (Verified 10/21/17 12:42) n/v - Home Medications Home medications: home medication list seen and reviewed Home Medications: Pregabalin [Lyrica 150mg (*)] 08/28/16 [Last Taken 10/22/17] Abacavir/Dolutegravir/Lamivudi [Triumeq Tablet] 10/01/17 [Last Taken 10/22/17] Acetaminophen/ASA/Caffeine [Excedrin Tablet (*)] 10/01/17 [Last Taken 10/15/17] Amitriptyline HCl [Elavil 50 mg (*)] 10/01/17 [Last Taken 10/21/17] Hydrocodone/Acetaminophen [Lenora 5/325 (*)] 10/01/17 [Last Taken 10/22/17] Meloxicam 10/01/17 [Last Taken 10/13/17] Methocarbamol [Robaxin 750 mg (*)] 10/01/17 [Last Taken 10/22/17] Topiramate [Topamax] 10/21/17 [Last Taken 10/21/17] diphenhydrAMINE [Benadryl 50 MG (*)] 10/21/17 [Last Taken 10/18/17] - NPO status NPO Since - Liquids (Date): 10/22/17 NPO Since - Liquids (Time): 07:30 NPO Since - Solids (Date): 10/21/17 NPO Since - Solids (Time): 23:30 - Anes Hx Anes Hx: no prior problems - Smoking Hx Smoking Status: Former smoker - Family Anes Hx Family Hx Anesthesia Complications: none ANE Labs/Vital Signs - Vital Signs Blood Pressure: 114/92 Heart Rate: 93 Respiratory Rate: 14 O2 Sat (%): 974 Height: 175.26 cm Weight: 102.058 kg ANE Physical Exam - Airway Neck exam: FROM Mallampati Score: Class 1 Mouth exam: normal dental/mouth exam - Pulmonary Pulmonary: no respiratory distress - Cardiovascular Cardiovascular: regular rate and rhythym - ASA Status ASA Status: III ANE Anesthesia Plan Anesthesia Plan: general endotracheal anesthesia Lines/Monitors: arterial line, additional IV
[2017-10-22] MEDS ORDERED: ONDANSETRON 4 MG/2 ML VIAL ONE ×2 (11:42→15:26)
[2017-10-22] MEDS ORDERED: DEXAMETHASONE 4 MG/ML VIAL ONE (11:42)
[2017-10-22] MEDS ORDERED: LIDOCAINE 2% 100 MG/5 ML SYR ONE (11:42)
[2017-10-22] MEDS ORDERED: ROCURONIUM 50 MG/5 ML VIAL ONE (11:42)
[2017-10-22] MEDS ORDERED: HYDROmorphONE/DILAUDID 2 MG/ML INJ ONE (12:26)
[2017-10-22] MEDS ORDERED: GENTAMICIN SULFATE 80 MG/2 ML VIAL ONE (13:14)
--- NOTE | 2017-10-22 13:15 | POSTANESTH ---
Post Anesthetic Evaluation Cardiovascular Status: Normal, Stable Respiratory Status: Normal, Stable Level of Consciousness/Mental Status: Can Participate in Eval, Alert and Oriented Pain Control: Adequate, Prn Tx Ordered Nausea/Vomiting Control: Adequate, Prn Tx Ordered Complications Possibly Related to Anesthesia: None Noted
[2017-10-22] MEDS ORDERED: KETOROLAC 30 MG/1 ML SDV ONE (14:07)
[2017-10-22] MEDS ORDERED: HYDROmorphONE/DILAUDID 1 MG/ML INJ IVP PRN (14:11)
[2017-10-22] MEDS ORDERED: NALOXONE HCL 0.4 MG/ML INJ IVP PRN (14:11)
[2017-10-22] MEDS ORDERED: ACETAMINOPHEN 500 MG TAB PO PRN (14:11)
[2017-10-22] MEDS ORDERED: oxyCODONE IR 5 MG TAB PO PRN (14:11)
[2017-10-22] MEDS ORDERED: ALBUTEROL 3 ML DEYVIAL IH PRN (14:11)
[2017-10-22] MEDS ORDERED: METOCLOPRAMIDE 10 MG/2 ML VIAL IVP PRN ×2 (14:11→22:50)
[2017-10-22] MEDS ORDERED: DIAZEPAM 5 MG/ML 1 ML SYR IVP PRN (14:11)
[2017-10-22] MEDS ORDERED: HYDROCODONE/APAP 5/325 TAB PO PRN (14:11)
[2017-10-22] MEDS ORDERED: ONDANSETRON 4 MG/2 ML VIAL IVP PRN ×2 (14:11→17:06)
[2017-10-22] MEDS ORDERED: LABETALOL HCL 5 MG/ML 20 ML MDV IVP PRN (14:11)
[2017-10-22] MEDS: fentaNYL 100 MCG/2 ML INJ IVP PRN ×2 (15:06→15:11)
[2017-10-22] MEDS ORDERED: LACTULOSE 20 GM/30 ML UDCUP PO PRN (15:09)
[2017-10-22] MEDS ORDERED: MAGNESIUM HYDROXIDE 30 ML UDCUP PO PRN (15:09)
[2017-10-22] MEDS ORDERED: POLYETHYLENE GLYCOL 3350 17 GM PKT PO PRN (15:09)
[2017-10-22] MEDS ORDERED: BISACODYL 10 MG SUPP PR PRN (15:09)
[2017-10-22] MEDS ORDERED: NS W/ 20 KCl/L 1,000 ML IV SCH (15:15)
--- NOTE | 2017-10-22 15:17 | GOP ---
[f rep st] OPERATIVE REPORT DATE OF OPERATION: 10/22/2017 SURGEON: Sreedhar Dobbins MD NEUROSURGEON: Sreedhar Dobbins MD. REGISTERED CLINICAL DIETITIAN: YASMINE Gibbons. PREOPERATIVE DIAGNOSIS: Chiari 1 malformation with severe headaches, paresthesias, and a small cervi austin syrinx. POSTOPERATIVE DIAGNOSIS: Chiari 1 malformation with severe headaches, paresthesias, and a small cerv ical syrinx. PROCEDURE PERFORMED: 1. Suboccipital decompression for Chiari malformation. 2. C1 laminectomy. 3. Duraplasty using bovine pericardium. 4. Use of the operative microscope. 5. Intraoperative neurophysiologic monitoring, including somatosensory evoked potentials and motor e voked potentials. FINDINGS: Successful Chiari decompression. SPECIMENS: There were no specimens. ESTIMATED BLOOD LOSS: 50 cc. INDICATIONS: The patient is a 37-year-old woman with history of a number of years of some nebulous s ymptoms. She primarily has headaches and paresthesias into the hands. She was being worked up for s ome cervical spine issues, but when she came to my office, I noticed that she had a large Chiari malf ormation of the cervical spine. She had a CSF flow study, which showed virtually no flow at the fora men magnum, and also, she has a small cervical syrinx. She was scheduled today for Chiari decompress ion. DESCRIPTION OF PROCEDURE: After informed consent was obtained from the patient, the patient was brou ght to the operating room and a formal time-out was performed, identifying the patient by name, medic al record number, and date of . Preoperative antibiotics were given. The endotracheal tube was placed and general endotracheal anesthesia was smoothly induced. The patient's head was placed in t he Yang pins and she was turned to the prone position on the operating table. All appropriate pr essure points were padded and checked. The head was placed in flexion with the neck slightly extende d exposing the suboccipital region. A linear incision was marked in the midline extending inferiorly from the inion down to past the C2 s pinous process. At this point, 15 cc of 0.25% Marcaine with epinephrine was infiltrated in the skin for hemostasis. The neck was prepped and draped in the normal sterile fashion. The skin incision was then made using a 10 blade and the subcutaneous tissues were dissected using mo nopolar electrocautery. The skin was undermined over the superficial cervical fascia for about 2 cm laterally. A transverse incision was then made in the cervical fascia and the suboccipital muscles i n the midline and the avascular plane in the midline was carefully dissected down to expose the C2 sp inous process. Self-retaining retractors were placed. The occipital bone was freed of its muscular attachments all the way down to the foramen magnum and the C1 arch was completely visualized. A sing le large vein was seen in the suboccipital bone. This was waxed using bone wax. Once we had a good exposure, the high-speed drill was used to drill 2 bur holes approximately 4.5 cm from the foramen magnum on either side of the midline. A 4 x 3.5 cm craniotomy flap was then turned down to the foramen magnum by using the high-speed drill. Again, the bony keel of the posterior jasmin a had a large vein, which was waxed. The area of the foramen magnum was extremely tight with a large ridge of bone. This was carefully drilled away. Once the craniectomy flap was removed, the edges o f the foramen magnum were drilled down, such that the foramen magnum was completely decompressed from one side to the other. A C1 laminectomy was then performed and the C1 bone was removed all the way to the lateral edges, completely decompressing the spinal canal. The upper portion of C2 was removed to create more space. At this point, all bleeding was controlled with bipolar electrocautery. Once we had a large enough area, the operative microscope was brought in the field and remainder of t he procedure was performed under high-power magnification. The dura was opened in a Y-shaped fashion with care to try to preserve the arachnoid membranes. The dural opening was approximately 4 x 5 cm in a triangular fashion. The cerebellar tonsils were visualized beneath the area where the foramen m agnum had been and were pulsatile with apparently reasonable flow. At this point, the bleeding from the dura was controlled using bipolar electrocautery. A bovine pericardium patch was then fashioned, which was 4 x 5 cm in a triangular fashion. This was tacked in the inferior portion using a 6-0 Pro francesca. The upper edges were tacked using 4-0 Nurolon, and then, the 6-0 Prolene was used to sew in th e dural patch in a watertight fashion with running sutures. The wound was finally irrigated with ashley rile saline and the sutures were tied down. At this point, a Valsalva was performed, which showed no sign of CSF leak. The wound was copiously irrigated using bacitracin irrigation. At this point, th e wound was dry. Suboccipital decompression had been complete. The patch was covered with DuraSeal, and the cervical fascia was then closed in a watertight fashion using interrupted 0 Vicryl. The ladi p dermis was closed using interrupted 2-0 Vicryl and the skin was closed using Monocryl. Steri-Strip s were placed over the wound. Sterile dressings were placed. The patient was turned back in the sup ine position where the Yang pins were removed and she was extubated, transferred to the PACU in s table condition. There were no operative complications. I was scrubbed and present for the entire p rocedure. COUNTS: All sponge and needle counts were correct at the end of the case. FLUIDS/URINE OUTPUT: Per the anesthesia record. DRAINS: There were no drains. MONITORING: All neurophysiologic monitoring was stable throughout the case. /[id number]/MODL
[2017-10-22] MEDS ORDERED: HYDROmorphONE/DILAUDID 1 MG/ML INJ ONE (15:21)
--- NOTE | 2017-10-22 15:25 | POSTOPPROG ---
Post Op Note Date of Operation: 10/22/17 Surgeon: Sreedhar Dobbins Pelt Salter: Dorinda Grady PA-C Anesthesia: GET(General Endotracheal) Pre-op Diagnosis: Chiari malformation Post-op Diagnosis: same Procedure: Chiari decompression Findings: see dictated operative report Inf/Abcess present in the surg proc area at time of surgery?: No Depth: Organ Space EBL: 50 Complications: none observed SOAP Progress Note Assessment/Plan: Assessment: Plan: 10/22/17 15:21 S: Patient in PACU. Tearful and in pain O; Tearful, awake, alert Following commands PERRl, EOMI CN II-XII grossly intact No droop DE LA TORRE X4 Incision c/d/i A: 37 yo female sp chiari decompression P: -Admit to stepdown -Q2 hour neuro checks overnight -Scheduled alternating Toradol and Tylenol, and Robaxin - Oxy prn -Monitor incision for any signs of CSF leak, HOB elevated overnight -PT/OT/EXPRESSIVE ART THERAPIST -DVT; TEDs, SCDs, Lovenox POD #2 -If doing well in am can transfer to floor tomorrow, home 10/24 vs 10/25 pending pain control and therapies -Call NS with any questions or concerns Objective: Vital Signs Temp Pulse Resp BP Pulse Ox 36.6 C 93 13 129/90 H 100 10/22/17 15:06 10/22/17 11:40 10/22/17 15:11 10/22/17 15:11 10/22/17 15:11
[2017-10-22] MEDS ORDERED: DIAZEPAM 5 MG/ML 1 ML SYR ONE (15:27)
[2017-10-22] MEDS ORDERED: PROMETHAZINE HCL 25 MG/ML INJ ONE (15:36)
[2017-10-22] MEDS: PROMETHAZINE HCL 25 MG/ML INJ IVP PRN ×2 (15:37→16:11)
[2017-10-22] MEDS: ACETAMINOPHEN 325 MG TAB PO SCH ×3 (16:36→23:14)
[2017-10-22] MEDS: POLYETHYLENE GLYCOL 3350 17 GM PKT PO SCH ×2 (16:36→20:20)
--- NOTE | 2017-10-22 16:36 | PDMN ---
Medical Necessity Medical necessity: IP only surgery; cpt 16528 Neurosurgery (C1 laminectomy w/ sub occipital chiari decompression)
[2017-10-22] MEDS ORDERED: DEXAMETHASONE 10 MG/ML VIAL IVP ONE (17:00)
[2017-10-22] MEDS ORDERED: ONDANSETRON DISINTEGRATING 4 MG TAB PO PRN (17:06)
[2017-10-22] MEDS ORDERED: PROCHLORPERAZINE MALEATE 5 MG TAB PO PRN (17:06)
[2017-10-22] MEDS ORDERED: SCOPOLAMINE HYDROBROMIDE 1 MG/3 DAYS PATCH TD PRN (17:06)
[2017-10-22] MEDS: HYDROmorphONE/DILAUDID 1 MG/ML INJ IVP PRN ×4 (17:13→22:39)
[2017-10-22] MEDS: KETOROLAC 30 MG/1 ML SDV IVP PRN (18:22)
[2017-10-22] MEDS: METHOCARBAMOL 750 MG TAB PO SCH (20:20)
[2017-10-22] MEDS: SENNOSIDES/DOCUSATE SODIUM TAB PO SCH (20:25)
[2017-10-22] MEDS: DEXAMETHASONE 4 MG/ML VIAL IVP PRN (23:13)
[2017-10-23] MEDS: HYDROmorphONE/DILAUDID 1 MG/ML INJ IVP PRN ×8 (01:46→20:22)
[2017-10-23] MEDS: PROMETHAZINE HCL 25 MG/ML INJ IVP PRN ×5 (02:03→20:22)
[2017-10-23] MEDS: ACETAMINOPHEN 325 MG TAB PO SCH ×7 (03:00→23:11)
[2017-10-23] MEDS: KETOROLAC 30 MG/1 ML SDV IVP PRN ×4 (03:53→23:21)
[2017-10-23] MEDS: DIAZEPAM 5 MG TAB PO PRN ×3 (03:53→14:04)
[2017-10-23] MEDS: METHOCARBAMOL 750 MG TAB PO SCH ×4 (06:32→20:21)
--- NOTE | 2017-10-23 07:46 | NEUSURGPN ---
Date of Surgery: 10/22/17 Post Op Day: 1 Assessment/Plan: Assessment: 37 yo female s/p chiari decompression POD #1 Plan: -continued stepdown status -pt with improved nausea, pain is better as well -PT/OT/ST ordered -UA ordered last night and shows 2+ blood, +leuks and 2+ bacteria -Q2 hour neuro checks -Scheduled alternating Toradol and Tylenol, and Robaxin -on steroids/zofran/scopolamine patch for nausea -Oxycodone prn -Monitor incision for any signs of CSF leak, HOB elevated -will watch today and if continues to do well then will transfer to floor -DVT prophylaxis: TEDs, SCDs, Lovenox POD #2 -home 10/24 vs 10/25 pending pain control and therapies -Call NS with any questions or concerns -d/w Dr Dobbins Subjective: Awake and alert. NAD. Eating/drinking and voiding. No f/c/n/v/d. Objective: awake, alert Following commands PERRLA, EOMI CN II-XII grossly intact No droop DE LA TORRE X 4, 5/5 BUE/BLE Incision c/d/i Neuro Check Frequency: per routine Urinary Catheter in Place: No Catheter Insertion Date: 10/22/17 - Physician Discussed Patient with : Mu Patient Seen by : Mu Neurosurgery Physical Exam - Vitals, I&O, Labs I and O 10/22/17 10/23/17 10/24/17 05:59 05:59 05:59 Intake Total 3250 Output Total 600 500 Balance 2650 -500 Weight 102.058 kg 102.058 kg Intake: Oral (ml) 450 IV Intake (ml) 1700 IV Infused (ml) 1100 NS W/ 20 KCl/L 1,000 ml @ 1000 100 mls/hr IV CONT [facility] Rx#:[id number] ceFAZolin 1 GM/DEXTROSE 100 50 ml @ 200 mls/hr IV Q8H [facility] Rx#:[id number] Output: Urine (ml) 550 500 Bedside Commode 10 Catheter 540 Toilet 500 Estimated Blood Loss (ml) 50 Other: Post Void Residual Scan Volume (ml) Catheter 0 Vital Signs Temp Pulse Resp BP Pulse Ox 36.8 C 97 28 H 111/63 97 10/23/17 07:31 10/23/17 07:31 10/23/17 07:31 10/23/17 07:31 10/23/17 07:31 ICD10 Worksheet Patient Problems: Problems Problem Status Onset Arnold-Chiari malformation, type I Acute Dizziness Acute Headache Acute Nausea Acute
[2017-10-23] MEDS: SENNOSIDES/DOCUSATE SODIUM TAB PO SCH ×2 (08:35→20:22)
[2017-10-23] MEDS: POLYETHYLENE GLYCOL 3350 17 GM PKT PO SCH ×3 (08:37→23:31)
[2017-10-23] MEDS ORDERED: HYDROCODONE/APAP 5/325 TAB PO PRN (09:13)
--- NOTE | 2017-10-23 09:56 | ASMTCASEMG ---
Living Arrangements What is your living Answers: Alone arrangement? Who do you live with? Type Of Residence What kind of residence do Answers: Apartment you live in? Discharge Plan Comments Coordination Status Comments Notes: Patient is a 37yo female who was admitted for a chiari malformation causing headaches, paresthesias, and some unusual sensation in a cape like distribution over her back. Patient has elected to have surgical procedure for suboccipital decompression. PT/OT/SPL have been ordered. D/C plan TBD. CM will follow. Date Signed: 10/23/2017 09:55 AM Electronically Signed By:Ave Skinner LCSW
[2017-10-23] MEDS: CIPROFLOXACIN 500 MG TAB PO SCH ×2 (10:13→21:29)
[2017-10-23] MEDS: PREGABALIN 150 MG CAP PO SCH ×2 (11:04→20:21)
[2017-10-23] MEDS: DEXAMETHASONE 4 MG/ML VIAL IVP PRN (12:35)
[2017-10-23] MEDS: oxyCODONE IR 5 MG TAB PO PRN ×2 (16:11→23:21)
[2017-10-23] MEDS: TOPIRAMATE 25 MG TAB PO SCH (20:21)
[2017-10-24] MEDS: PROMETHAZINE HCL 25 MG/ML INJ IVP PRN ×3 (02:11→16:53)
[2017-10-24] MEDS: HYDROmorphONE/DILAUDID 1 MG/ML INJ IVP PRN (02:14)
[2017-10-24] MEDS: ACETAMINOPHEN 325 MG TAB PO SCH ×6 (03:11→22:24)
[2017-10-24] MEDS: oxyCODONE IR 5 MG TAB PO PRN ×5 (05:03→23:03)
[2017-10-24] MEDS: METHOCARBAMOL 750 MG TAB PO SCH ×4 (06:15→20:33)
[2017-10-24] MEDS: DIAZEPAM 5 MG TAB PO PRN ×3 (06:23→23:03)
[2017-10-24] MEDS: KETOROLAC 30 MG/1 ML SDV IVP PRN ×3 (07:22→22:23)
[2017-10-24] MEDS: PREGABALIN 150 MG CAP PO SCH ×2 (07:25→20:32)
[2017-10-24] MEDS: SENNOSIDES/DOCUSATE SODIUM TAB PO SCH ×2 (07:25→20:32)
[2017-10-24] MEDS: LAMIVUDI PO SCH (07:26)
[2017-10-24] MEDS: POLYETHYLENE GLYCOL 3350 17 GM PKT PO SCH ×3 (07:26→20:38)
[2017-10-24] MEDS: ABACAVIR PO SCH (07:26)
[2017-10-24] MEDS: DOLUTEGRAVIR PO SCH (07:26)
[2017-10-24] MEDS: VITAMIN B COMPLEX 1 EA CAP/TAB PO SCH (07:26)
--- NOTE | 2017-10-24 07:53 | NEUSURGPN ---
Assessment/Plan: Assessment: 37 yo female s/p chiari decompression POD #2 Plan: -continued stepdown status -pt with improved nausea, pain is better as well -PT/OT/ST ordered -UA shows 2+ blood, +leuks and 2+ bacteria. Patient started on Cipro -Q4 hour neuro checks -Scheduled alternating Toradol and Tylenol, and Robaxin/Valium available for muscle relaxers, Oxycodone prn -on steroids/zofran/scopolamine patch for nausea -Monitor incision for any signs of CSF leak, HOB elevated -DVT prophylaxis: TEDs, SCDs, Lovenox -home 10/25 pending pain control and therapies -Will transfer to the floor -Call NS with any questions or concerns -d/w Dr Dobbins Subjective: Eating/drinking and voiding. Nausea and muscle spasms, Objective: Objective: awake, alert Following commands PERRLA, EOMI CN II-XII grossly intact No droop DE LA TORRE X 4, 5/5 BUE/BLE Incision c/d/i Catheter Insertion Date: 10/22/17 - Physician Discussed Patient with : Mu Neurosurgery Physical Exam - Vitals, I&O, Labs I and O 10/23/17 10/24/17 10/25/17 05:59 05:59 05:59 Intake Total 3250 1950 Output Total 600 6550 Balance 2650 -4600 Weight 102.058 kg Intake: Oral (ml) 450 1950 IV Intake (ml) 1700 IV Infused (ml) 1100 NS W/ 20 KCl/L 1,000 ml @ 1000 100 mls/hr IV CONT [facility] Rx#:[id number] ceFAZolin 1 GM/DEXTROSE 100 50 ml @ 200 mls/hr IV Q8H [facility] Rx#:[id number] Output: Urine (ml) 550 6550 Bedside Commode 10 Catheter 540 Toilet 6550 Estimated Blood Loss (ml) 50 Other: Intake Quantity Yes Sufficient Number of Voids Toilet 1 Post Void Residual Scan Volume (ml) Catheter 0 Vital Signs Temp Pulse Resp BP Pulse Ox 36.3 C 70 19 121/83 H 97 10/24/17 07:15 10/24/17 07:15 10/24/17 07:15 10/24/17 07:15 10/24/17 07:15 ICD10 Worksheet Patient Problems: Problems Problem Status Onset Arnold-Chiari malformation, type I Acute Dizziness Acute Headache Acute Nausea Acute
[2017-10-24] MEDS ORDERED: AMITRIPTYLINE HCL 50 MG TAB PO SCH (09:00)
[2017-10-24] MEDS: ENOXAPARIN 40 MG/0.4 ML SYR SC SCH (09:19)
[2017-10-24] MEDS: CIPROFLOXACIN 500 MG TAB PO SCH ×2 (09:19→20:32)
[2017-10-24] MEDS: TOPIRAMATE 25 MG TAB PO SCH (20:32)
[2017-10-24] MEDS: AMITRIPTYLINE HCL 50 MG TAB PO SCH (20:32)
[2017-10-25] MEDS: HYDROmorphONE/DILAUDID 1 MG/ML INJ IVP PRN (02:36)
[2017-10-25] MEDS: ACETAMINOPHEN 325 MG TAB PO SCH ×6 (04:41→21:53)
[2017-10-25] MEDS: METHOCARBAMOL 750 MG TAB PO SCH ×4 (05:26→19:53)
[2017-10-25] MEDS: oxyCODONE IR 5 MG TAB PO PRN ×6 (05:26→23:37)
[2017-10-25] MEDS: DOLUTEGRAVIR PO SCH (07:35)
[2017-10-25] MEDS: LAMIVUDI PO SCH (07:35)
[2017-10-25] MEDS: ABACAVIR PO SCH (07:35)
[2017-10-25] MEDS: POLYETHYLENE GLYCOL 3350 17 GM PKT PO SCH ×3 (08:21→21:52)
[2017-10-25] MEDS: PREGABALIN 150 MG CAP PO SCH ×2 (08:21→19:53)
[2017-10-25] MEDS: CIPROFLOXACIN 500 MG TAB PO SCH ×2 (08:22→19:53)
[2017-10-25] MEDS: SENNOSIDES/DOCUSATE SODIUM TAB PO SCH ×2 (08:22→19:51)
[2017-10-25] MEDS: VITAMIN B COMPLEX 1 EA CAP/TAB PO SCH (08:22)
[2017-10-25] MEDS: ENOXAPARIN 40 MG/0.4 ML SYR SC SCH (08:23)
--- NOTE | 2017-10-25 08:46 | SOAPPROG ---
SOAP Progress Note Assessment/Plan: Assessment: 37 yo female s/p chiari decompression POD #3. Ongoing pain. No new neuro changes Plan: -pain control -wean Decadron to 4mg Q8 today. -PT/OT/ST ordered -UA shows 2+ blood, +leuks and 2+ bacteria. Patient started on Cipro -Q4 hour neuro checks -Scheduled alternating Toradol and Tylenol, and Robaxin/Valium available for muscle relaxers, Oxycodone prn -on steroids/zofran/scopolamine patch for nausea -Monitor incision for any signs of CSF leak, HOB elevated -DVT prophylaxis: TEDs, SCDs, Lovenox -home 10/25 pending pain control and therapies -Will transfer to the floor -Call NS with any questions or concerns -d/w Dr Dobbins Subjective: Eating/drinking and voiding. Complains of incisional pain this AM Objective: awake, alert Following commands PERRLA, EOMI CN II-XII grossly intact No droop DE LA TORRE X 4, 5/5 BUE/BLE Dressing: c/d/i 10/25/17 08:45 Objective: Vital Signs Temp Pulse Resp BP Pulse Ox 36.9 C 63 16 114/72 100 10/25/17 07:25 10/25/17 07:25 10/25/17 07:25 10/25/17 07:25 10/25/17 07:25 10/24/17 10/25/17 10/26/17 05:59 05:59 05:59 Intake Total 1950 300 Output Total 1935 1230 Balance -8842 -242 ICD10 Worksheet Patient Problems: Problems Problem Status Onset Arnold-Chiari malformation, type I Acute Dizziness Acute Headache Acute Nausea Acute
[2017-10-25] MEDS: PROMETHAZINE HCL 25 MG/ML INJ IVP PRN ×2 (09:13→23:06)
[2017-10-25] MEDS: DEXAMETHASONE 4 MG TAB PO SCH ×3 (09:23→21:52)
[2017-10-25] MEDS ORDERED: PATCH REMOVAL 1 EA PATCH TD PRN (17:07)
[2017-10-25] MEDS: KETOROLAC 30 MG/1 ML SDV IVP PRN ×2 (18:23→23:55)
[2017-10-25] MEDS: AMITRIPTYLINE HCL 50 MG TAB PO SCH (19:52)
[2017-10-25] MEDS: TOPIRAMATE 25 MG TAB PO SCH (19:54)
[2017-10-25] MEDS: DIAZEPAM 5 MG TAB PO PRN (21:52)
[2017-10-26] MEDS: oxyCODONE IR 5 MG TAB PO PRN ×3 (03:55→11:17)
[2017-10-26] MEDS: ACETAMINOPHEN 325 MG TAB PO SCH ×2 (03:56→08:43)
[2017-10-26] MEDS: METHOCARBAMOL 750 MG TAB PO SCH ×2 (06:01→11:17)
[2017-10-26] MEDS: DEXAMETHASONE 4 MG TAB PO SCH (06:01)
[2017-10-26 07:26] VITALS: BP 101/65
[2017-10-26] MEDS: ABACAVIR PO SCH (07:48)
[2017-10-26] MEDS: DOLUTEGRAVIR PO SCH (07:48)
[2017-10-26] MEDS: LAMIVUDI PO SCH (07:48)
[2017-10-26] MEDS: CIPROFLOXACIN 500 MG TAB PO SCH (08:42)
[2017-10-26] MEDS: POLYETHYLENE GLYCOL 3350 17 GM PKT PO SCH (08:42)
[2017-10-26] MEDS: VITAMIN B COMPLEX 1 EA CAP/TAB PO SCH (08:43)
[2017-10-26] MEDS: SENNOSIDES/DOCUSATE SODIUM TAB PO SCH (08:43)
[2017-10-26] MEDS: PREGABALIN 150 MG CAP PO SCH (08:43)
[2017-10-26] MEDS: ENOXAPARIN 40 MG/0.4 ML SYR SC SCH (08:44)
--- NOTE | 2017-10-26 10:31 | SOAPPROG ---
SOAP Progress Note Assessment/Plan: Assessment: 37 yo female s/p chiari decompression POD #4. Pain under much better control today. No new neuro changes Plan: -DC home today. -UA shows 2+ blood, +leuks and 2+ bacteria. on Cipro -Call NS with any questions or concerns Subjective: Out of bed in bedside chair, feeling much better this AM. Wants to go home. Denies neuro changes. Objective: awake, alert Following commands PERRLA, EOMI CN II-XII grossly intact No droop DE LA TORRE X 4, 5/5 BUE/BLE incision: c/d/i 10/26/17 10:30 Objective: Vital Signs Temp Pulse Resp BP Pulse Ox 37.0 C 59 L 16 101/65 93 10/26/17 07:22 10/26/17 07:22 10/26/17 07:22 10/26/17 07:22 10/26/17 07:22 10/25/17 10/26/17 10/27/17 05:59 05:59 05:59 Intake Total 300 1200 Output Total 1250 700 Balance -950 500 ICD10 Worksheet Patient Problems: Problems Problem Status Onset Arnold-Chiari malformation, type I Acute Dizziness Acute Headache Acute Nausea Acute
--- NOTE | 2017-10-26 12:34 | ASMTLACE ---
[facility] Length of stay for Answers: 4-6 days current admission Acuity / Level of Answers: Yes Care: Did the patient have an inpatient admission? Comorbidities - select Answers: Other Notes: Chiari malformation all that apply # of Emergency department Answers: 1-2 visits in the last 6 months Score: 9 Date Signed: 10/26/2017 12:33 PM Electronically Signed By:Lakeshia Martin RN
--- NOTE | 2017-10-26 18:34 | ASDISCHSUM ---
Discharge Information Plan Status:Home with No Needs Medically Cleared to Leave:10/26/2017 Discharge Date:10/26/2017 01:15 PM CM D/C Disposition:Home, Routine, Self-Care ADT D/C Disposition:Home, Routine, Self-Care Projected Discharge Date:10/26/2017 01:15 PM Transportation at D/C:Family Discharge Delay Reason: Follow-Up Date:10/26/2017 01:15 PM Discharge Slot:2 - 12:01 pm - 18:00 pm Final Diagnosis:s/p chiari decompression Placement Information Patient Contact Information Contact Name:VIKKI Relationship:Mother Address: Work Phone: City: [facility] Phone: [facility] Code: Email: Financial Information Financial Class:Medicaid Primary Plan Desc:MED[employer] [place] Primary Plan Number:[id number] Secondary Plan Desc: Secondary Plan Number: Assessment Information LACE LACE Length of stay for Answers: 4-6 days current admission Acuity / Level of Answers: Yes Care: Did the patient have an inpatient admission? Comorbidities - select Answers: Other Notes: Chiari malformation all that apply # of Emergency department Answers: 1-2 visits in the last 6 months Score: 9 Date Signed: 10/26/2017 12:33 PM Electronically Signed By:Lakeshia Martin RN [facility] Initial CM Assessment Living Arrangements What is your living Answers: Alone arrangement? Who do you live with? Type Of Residence What kind of residence do Answers: Apartment you live in? Discharge Plan Comments Coordination Status Comments Notes: Patient is a 37yo female who was admitted for a chiari malformation causing headaches, paresthesias, and some unusual sensation in a cape like distribution over her back. Patient has elected to have surgical procedure for suboccipital decompression. PT/OT/SPL have been ordered. D/C plan TBD. CM will follow. Date Signed: 10/23/2017 09:55 AM Electronically Signed By:Ave Skinner LCSW Case Management Discharge Plan Note Case Management Discharge Discharge Order Complete? Answers: Yes Patient to Obtain Answers: Independently Medications Transportation Arranged Answers: Family/Friends Transport will Pick (Date 10/26/2017 12:00 AM & Time) EMTALA Complete Answers: No Notes: N/A Case Management Transport Answers: No Notes: N/A Form Complete Faxed Final Orders Answers: No Notes: N/A Agency/Facility Transfer Answers: No Notes: N/A Report Printed & Faxed to Receiving Agency Family Notified Answers: No Notes: Pt to notify Discharge Comments Notes: Reviewed chart regarding discharge plan of care, pt's progress. Pt to discharge home independently with family support and no identified needs. Pt to follow up as directed. No IM signed, not applicable. CM available for any further issues or concerns. Discharge Plan: Home independently with family support Date Signed: 10/26/2017 06:33 PM Electronically Signed By:Lakeshia Martin RN Intervention Information
== END 2017-10-26 13:15 | disposition home or self-care (01) | DRG 21 ==
LOC: F3N 09:47 → F2N 16:19 → F3N 10-24 10:47
PROVIDERS: ADMIT Neurological Surgery; ATTEND Neurological Surgery
DX: G95.0 Syringomyelia and syringobulbia (principal); N39.0 Urinary tract infection, site not specified; Q07.00 Arnold-Chiari syndrome without spina bifida or hydrocephalus
CPT/HCPCS: 92523-GN; 97116-GP; 97161-GP; 97165-GO; 97530-GP; 97535-GO; C1763; J0171; J0690; J1100; J1170; J1580; J1650; J1885; J2001; J2250; J2405; J2550; J2704; J3010; J3360

== ENCOUNTER 2017-11-04 10:10 | Observation (INO) | payer MEDICAID ==
[2017-11-04] MEDS ORDERED: HYDROmorphONE/DILAUDID 1 MG/ML INJ IVP ONE (10:23)
--- NOTE | 2017-11-04 10:29 | EDPHY ---
H & P Stated Complaint: headache s/p chiari decompression Time Seen by Provider: 11/04/17 10:12 HPI/ROS: Chief Complaint: Headache HPI: 29-year-old woman who had a type I Chiari malformation decompression by Dr. Mayberry on the of last month. She had severe worsening headache this morning. She took 2 however Oxy IR tablets without significant relief. Pain is currently a 10/10. No fevers but has had some subjective chills. She has had some nausea, no vomiting. No numbness or weakness. Patient states that the pain has gotten worse than she tapered off of her dexamethasone i in feels is providing most pain relief. ROS: 10 point Review of Systems is negative except as noted in the HPI. PMH: Chiari malformation decompression Social History: No smoking, no alcohol, no recreational drug use Family History: non-contributory Physical Exam: Gen: Awake, Alert, No Distress HEENT: Patient has a suboccipital incision which is intact, no erythema or discharge Nose: no rhinorrhea Eyes: PERRLA, EOMI Mouth: Moist mucosa Neck: Supple, no JVD Chest: nontender, lungs clear to auscultation Heart: S1, S2 normal, no murmur Abd: Soft, non-tender, no guarding Back: no CVA tenderness, no midline tenderness Ext: no edema, non-tender Skin: no rash Neuro: CN II-XII intact, Sensation grossly intact, Strength 5/5 in bilateral upper and lower extremities - Personal History LMP (Females 10-55): Unknown Tetanus Vaccine Date: last 10years - Medical/Surgical History Hx Asthma: No Hx Chronic Respiratory Disease: No Hx Diabetes: No Hx Cardiac Disease: No Hx Renal Disease: No Hx Cirrhosis: No Hx Alcoholism: No Hx HIV/AIDS: Yes Hx Splenectomy or Spleen Trauma: No Other PMH: HIV + chronic pain/fibromyalgia/degenerative disc disease, chiari malformation with decompression 10/22/17 - Social History Smoking Status: Former smoker Constitutional: Initial Vital Signs Temperature (C) 36.8 C 11/04/17 10:17 Heart Rate 80 11/04/17 10:17 Respiratory Rate 20 11/04/17 10:17 Blood Pressure 114/83 H 11/04/17 10:17 O2 Sat (%) 94 11/04/17 10:17 O2 Delivery Mode Room Air Allergies/Adverse Reactions: bupropion [From Wellbutrin] Allergy (Verified 10/21/17 12:42) n/v carbamazepine [From Tegretol] Allergy (Verified 10/21/17 12:42) feels like bugs are crawling on her duloxetine [From Cymbalta] Allergy (Verified 10/21/17 12:42) n/v Home Medications: Medication Instructions Recorded Abacavir/Dolutegravir/Lamivudi 1 each PO DAILY 10/22/17 [Triumeq Tablet] Acetaminophen/ASA/Caffeine 1 each PO DAILY PRN 10/22/17 [Excedrin Tablet (*)] Amitriptyline HCl [Elavil 50 mg 75 mg PO DAILY 10/22/17 (*)] Hydrocodone/Acetaminophen [[place] 1 - 2 tab PO Q6H PRN 10/22/17 5/325 (*)] Meloxicam 15 mg PO DAILY 10/22/17 Methocarbamol [Robaxin 750 mg (*)] 1,500 mg PO TID 10/22/17 Pregabalin [Lyrica 150mg (*)] 150 mg PO HS 10/22/17 Topiramate [Topamax 25MG (*)] 25 mg PO HS 10/22/17 Vitamin B Complex [Vitamin B 1 each PO DAILY 10/22/17 Complex (OTC)] Ciprofloxacin [Cipro] 500 mg PO BID@1000,2000 5 Days tab 10/26/17 Dexamethasone [Decadron 4 MG (*)] 4 mg PO Q8HRS #0 tab 10/26/17 Ondansetron Odt [Zofran Odt 4 mg 4 mg PO Q4HRS PRN #30 tab 10/26/17 (*)] Polyethylene Glycol 3350 [Miralax 17 gm PO TID pkt 10/26/17 17 gm (*)] Pregabalin [Lyrica 150mg (*)] 300 mg PO DAILY #60 cap 10/26/17 Sennosides/Docusate Sodium 1 - 2 tab PO BID tab 10/26/17 [Senokot-S] oxyCODONE IR [Oxycodone Ir (*)] 5 - 10 mg PO Q3H PRN #60 tab 10/26/17 Medical Decision Making - Diagnostics Imaging Results: Imaging Impressions Head CT 11/04/17 11:01 Impression: 1. Mild left subdural hygroma in the left frontal parietal region, new over the interval. No definite acute intracranial hemorrhage. Postsurgical changes of Chiari decompression of the occipital bone at the posterior foramen magnum. Findings are compatible with Chiari I malformation. 2. Moderate chronic sinus-related change left maxillary sinus. Results called and discussed with Dr. Irineo Parmar on November 04, 2017 at 1212 hours. Imaging: Discussed imaging studies w/ laser beam color scanner operator Radiologist ED Course/Re-evaluation: I have discussed the patient with Dr. Mayberry, neurosurgery. He believes that the CT scan findings are not unexpected and do not feel that these are contributory to her headaches. He does not feel that her headaches are secondary to a significant postoperative complication. He will be happy to consult on the patient. He is requesting the patient be admitted to the hospitalist. I have discussed with Hailey Lomax, hospitalist. Will admit to Dr. Moreno for further pain control. She is requesting IV ketamine as an attempt to control her pain and I think this is an excellent idea. - Data Points Laboratory Results: Laboratory Results 11/04/17 10:25 11/04/17 10:25 11/04/17 11/04/17 10:25 10:25 WBC 10.03 10^3/uL H 10^3/uL (3.80-9.50) RBC 4.58 10^6/uL 10^6/uL (4.18-5.33) Hgb 14.7 g/dL g/dL (12.6-16.3) Hct 43.2 % % (38.0-47.0) MCV 94.3 fL fL (81.5-99.8) MCH 32.1 pg pg (27.9-34.1) MCHC 34.0 g/dL g/dL (32.4-36.7) RDW 14.1 % % (11.5-15.2) Plt Count 307 10^3/uL 10^3/uL (150-400) MPV 9.7 fL fL (8.7-11.7) Neut % (Auto) 62.0 % % (39.3-74.2) Lymph % (Auto) 26.9 % % (15.0-45.0) [place] % (Auto) 6.9 % % (4.5-13.0) Eos % (Auto) 2.6 % % (0.6-7.6) Baso % (Auto) 0.6 % % (0.3-1.7) Nucleat RBC Rel Count 0.0 % % (0.0-0.2) Absolute Neuts (auto) 6.22 10^3/uL 10^3/uL (1.70-6.50) Absolute Lymphs (auto) 2.70 10^3/uL 10^3/uL (1.00-3.00) Absolute Monos (auto) 0.69 10^3/uL 10^3/uL (0.30-0.80) Absolute Eos (auto) 0.26 10^3/uL 10^3/uL (0.03-0.40) Absolute Basos (auto) 0.06 10^3/uL 10^3/uL (0.02-0.10) Absolute Nucleated RBC 0.00 10^3/uL 10^3/uL (0-0.01) Immature Gran % 1.0 % % (0.0-1.1) Immature Gran # 0.10 10^3/uL 10^3/uL (0.00-0.10) Sodium 140 mEq/L mEq/L (135-145) Potassium 4.7 mEq/L mEq/L (3.3-5.0) Chloride 104 mEq/L mEq/L (97-110) Carbon Dioxide 26 mEq/l mEq/l (22-31) Anion Gap 10 mEq/L mEq/L (8-16) BUN 15 mg/dL mg/dL (7-23) Creatinine 0.9 mg/dL mg/dL (0.6-1.0) Estimated GFR > 60 Glucose 80 mg/dL mg/dL (70-100) Calcium 9.7 mg/dL mg/dL (8.5-10.4) Medications Given: Discontinued Medications Hydromorphone HCl (Dilaudid) 1 mg IVP EDNOW ONE Stop: 11/04/17 10:24 Last Admin: 11/04/17 10:32 Dose: 1 mg Hydromorphone HCl (Dilaudid) 1 mg IVP EDNOW ONE Stop: 11/04/17 11:59 Last Admin: 11/04/17 12:02 Dose: 1 mg Ondansetron HCl (Zofran) 4 mg IVP EDNOW ONE Stop: 11/04/17 10:38 Last Admin: 11/04/17 10:43 Dose: 4 mg Promethazine HCl (Phenergan) 12.5 mg IVP EDNOW ONE Stop: 11/04/17 12:36 Last Admin: 11/04/17 12:37 Dose: 12.5 mg Departure - Departure Disposition: [facility] Inpatient Acute Clinical Impression: Headache Condition: Fair Referrals: Patient,NotPresent [Unknown] - As per Instructions
[2017-11-04] MEDS ORDERED: ONDANSETRON 4 MG/2 ML VIAL IVP ONE ×2 (10:37→14:19)
[2017-11-04 10:49] LABS: PLATELET COUNT 307 10^3/uL (150-400)
[2017-11-04] MEDS ORDERED: HYDROmorphONE/DILAUDID 2 MG/ML INJ IVP ONE (11:58)
[2017-11-04] MEDS ORDERED: PROMETHAZINE HCL 25 MG/ML INJ ONE (12:34)
[2017-11-04] MEDS ORDERED: PROMETHAZINE HCL 25 MG/ML INJ IVP ONE (12:35)
[2017-11-04] MEDS ORDERED: KETAMINE 500 MG/10 ML VIAL IVP ONE (13:38)
[2017-11-04] MEDS ORDERED: ONDANSETRON 4 MG/2 ML VIAL ONE (14:07)
[2017-11-04] MEDS ORDERED: LORazepam 2 MG/ML INJ ONE (14:17)
[2017-11-04] MEDS ORDERED: LORazepam 2 MG/ML INJ IVP ONE (14:19)
[2017-11-04] MEDS ORDERED: POLYETHYLENE GLYCOL 3350 17 GM PKT PO PRN (15:36)
[2017-11-04] MEDS ORDERED: SENNOSIDES/DOCUSATE SODIUM TAB PO PRN (15:36)
[2017-11-04] MEDS ORDERED: ACETAMINOPHEN/ASA/CAFFEINE 1 EACH TAB PO PRN (15:36)
[2017-11-04] MEDS ORDERED: HYDROmorphONE/DILAUDID 1 MG/ML INJ IVP PRN (16:05)
[2017-11-04] MEDS: oxyCODONE IR 5 MG TAB PO PRN ×2 (16:48→22:12)
[2017-11-04] MEDS: ONDANSETRON DISINTEGRATING 4 MG TAB PO PRN ×2 (16:49→21:19)
[2017-11-04] MEDS: DEXAMETHASONE 4 MG/ML VIAL IVP SCH ×3 (16:49→23:09)
[2017-11-04] MEDS: METHOCARBAMOL 750 MG TAB PO SCH ×2 (16:49→20:30)
--- NOTE | 2017-11-04 17:03 | GHP ---
[f rep st] HISTORY AND PHYSICAL DATE OF ADMISSION: 11/04/2017 CHIEF COMPLAINT: Headache. HISTORY OF PRESENT ILLNESS: This is a 37-year-old female, who is accompanied by her mother, who pres ents to the emergency department complaining of a headache. She has a complicated recent history. S he had received ketamine in the ED and is quite reluctant to answer my questions, though her mother hina rojaylendes some of the history. She was admitted to this hospital to the to the hospitalist service fro October 01 to for a headache. At that point, she had a known Chiari malformation. Dr. Mayberry [facility] Neurosurgery was consulted. She was discharged after having reasonable control of her headache. She followed up with Dr. Dobbins, who recommended decompression surgery. She did undergo this surgery during the hospitalization from 10/22 to 10/26. She initially had significant difficulty with the se dation. Per her mother, she was doing well for a few days. She completed her Decadron taper 2 days ago, at which time her headaches became much worse. She is quite incapacitated from her headaches an d has difficulty explaining the exact nature of them at this point. She tells me that her hands and feet have been numb and weak. She tells me that this is not new or changed after surgery. She has t hrown up twice today. In the emergency department she received ketamine. She did not tolerate this very well at all. PAST MEDICAL/SURGICAL HISTORY: 1. Chiari malformation, status post recent decompression. 2. Chronic pain on continuous narcotics. 3. Suspected chronic headache syndrome in addition to Chiari malformation. 4. HIV, well controlled with undetectable viral load. MEDICATIONS: Please see medication reconciliation. ALLERGIES: Bupropion, carbamazepine, duloxetine, ketamine. FAMILY HISTORY: The maternal side of her family had migraines. SOCIAL HISTORY: She quit smoking. She does not drink or use any other drugs. PHYSICAL EXAM: VITAL SIGNS: Blood pressure 124/83, heart rate 109 respiration rate 18, saturating 9 6% on room air. Temperature is 36.9. GENERAL: Ms. Shannon is a pleasant female who looks quite unco mfortable, lying on her side. Holding her head. HEENT: Shows her to be normocephalic, atraumatic. CARDIOVASCULAR: Regular rate and rhythm. No murmurs, rubs, or gallops. PULMONARY: Lungs clear to auscultation bilaterally. ABDOMEN: Soft, nontender, nondistended. SKIN: Shows no rash. : No F oley. NEUROLOGIC: Exam shows her to be alert and oriented x3. She has 5/5 strength in her upper and lower extremities, though she is not very participatory in the exam. She denies any decreased sensa tion to light touch. PSYCHIATRIC: Shows her to be somewhat disgruntled. LABS: Show a white count of 10.03. Basic metabolic panel is normal. DATA: 1. I reviewed her head CT scan. This showed a subdural hygroma, as well as postsurgical changes of Chiari decompression. 2. I discussed with Dr. Mayberry. IMPRESSION AND PLAN: 1. Headaches: This is a complicated problem with a long-standing history of headaches, as well as r ecent Chiari decompression. It is difficult to clearly understand what is the biggest contributing f actor here. As above, I believe she has an underlying headache syndrome as well as chronic narcotic use which is likely exacerbating the acute presentation. She did tell me that her headaches got a lo t worse after finishing her Decadron taper, thus I will try a trial of Decadron. We will also provid e her with IV as well as p.o. narcotics as needed tonight. Appreciate Neurosurgery's assistance. Dr Armen Dobbins does not feel as though the subdural hygroma is the cause of her headache. We will consider Neurology consultation based on her response to the above measures. 2. Human immunodeficiency virus : We will continue her home medication. Her last CD4 count was jeremy ost 400. 3. Chronic pain: I see that she is currently on Elavil, Lyrica, meloxicam, oxycodone as well as Nor co, Topamax. We will continue these for now. /[id number]/MODL
[2017-11-04] MEDS: HYDROCODONE/APAP 5/325 TAB PO PRN (19:50)
[2017-11-04] MEDS ORDERED: PREGABALIN 150 MG CAP PO SCH (21:00)
[2017-11-04] MEDS ORDERED: TOPIRAMATE 25 MG TAB PO SCH (21:00)
[2017-11-04] MEDS ORDERED: AMITRIPTYLINE HCL 25 MG TAB PO SCH (21:00)
[2017-11-05] MEDS: oxyCODONE IR 5 MG TAB PO PRN ×3 (01:12→10:03)
[2017-11-05] MEDS: ONDANSETRON DISINTEGRATING 4 MG TAB PO PRN ×2 (01:13→10:00)
[2017-11-05] MEDS: HYDROCODONE/APAP 5/325 TAB PO PRN ×2 (03:08→09:02)
[2017-11-05] MEDS: DEXAMETHASONE 4 MG/ML VIAL IVP SCH ×2 (05:14→12:18)
[2017-11-05] MEDS ORDERED: PREGABALIN 150 MG CAP PO SCH (09:00)
[2017-11-05] MEDS ORDERED: ABACAVIR PO SCH (09:00)
[2017-11-05] MEDS ORDERED: DOLUTEGRAVIR PO SCH (09:00)
[2017-11-05] MEDS ORDERED: VITAMIN B COMPLEX 1 EA CAP/TAB PO SCH (09:00)
[2017-11-05] MEDS ORDERED: LAMIVUDI PO SCH (09:00)
[2017-11-05] MEDS: METHOCARBAMOL 750 MG TAB PO SCH (09:03)
[2017-11-05 11:07] VITALS: BP 120/83
--- NOTE | 2017-11-05 12:28 | GDS ---
[f rep st] DISCHARGE SUMMARY FINAL DIAGNOSES: 1. Acute on chronic headache. 2. Chiari malformation with recent decompressive surgery. 3. Chronic pain. 4. Human immunodeficiency virus, well controlled. HOSPITAL COURSE: Patient is a 37-year-old female, who presented with severe headache. Notably, she had a Chiari malformation decompressed on October 22, 2017. She does have a long history of headaches h owever. After surgery she was doing well until she ran out of her dexamethasone 2 days prior to her presentation here. Her headaches became severe and she thus presented to the emergency department. I restarted her dexamethasone with significant improvement in her headache. She is eating and anxiou s to be discharged today. I discussed with Dr. Dobbins as well as Reji Ding, subdural hygroma seen on CT scan of her head here. Neurosurgery feels that this is expected postop and no intervention is ne eded. She has a followup appointment with Dr. Dobbins tomorrow. I am discharging her with ongoing Dec adron to be tapered per Dr. Dobbins. Will also discharge her with a short course of oxycodone #15. /[id number]/MODL
== END 2017-11-05 13:49 | disposition home or self-care (01) ==
LOC: EDUNIT# → F3E 14:58
PROVIDERS: ADMIT Emergency Medicine; ATTEND Student in an Organized Health Care Education/Training Program
DX: R51 Headache (principal); G93.5 Compression of brain; G89.29 Other chronic pain; Z21 Asymptomatic human immunodeficiency virus [HIV] infection status; M79.7 Fibromyalgia; Z87.891 Personal history of nicotine dependence
CPT/HCPCS: 70450; 96374; 96375; 96376; 99285; G0378; J1100; J1170; J2060; J2405; J2550

== ENCOUNTER 2017-12-31 14:45 | Inpatient (IN) | payer MEDICAID ==
[2018-01-07] MEDS ORDERED: ACETAMINOPHEN 500 MG TAB PO ONE (09:18)
[2018-01-07] MEDS ORDERED: ceFAZolin 2 GM/DEXTROSE 100 ML IV ONE (09:18)
[2018-01-07] MEDS ORDERED: morphINE SR 15 MG TAB PO ONE (09:18)
[2018-01-07] MEDS ORDERED: LR 1,000 ML IV ONE (09:19)
[2018-01-07] MEDS ORDERED: LIDOCAINE 1% 2 ML INJ ID PRN (09:19)
[2018-01-07 10:23] LABS: PLATELET COUNT 276 10^3/uL (150-400)
[2018-01-07] MEDS ORDERED: MIDAZOLAM 2 MG/2 ML VIAL IVP ONE (12:25)
--- NOTE | 2018-01-07 12:29 | PDANEPAE ---
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 NO INHALER. DRY COUGH PAST 4 DAYS - Neurologic History Hx Cerebrovascular Accident: No Hx Seizures: No Hx Dementia: No Neurologic History Comment: DDD. Type 1 chiari malformation. n/t to bilateral arms, legs, feet and hands - Endocrine History Hx Diabetes: No Hypothyroid: No Hyperthyroid: No Obesity: moderate - Renal History Hx Renal Disorders: No - Liver History Hx Hepatic Disorders: No - Neurological & Psychiatric Hx Hx Neurological and Psychiatric Disorders: Yes Neurological / Psychiatric History Comment: depression - Cancer History Hx Cancer: No - Congenital Disorder History Hx Congenital Disorders: No - GI History Hx Gastrointestinal Disorders: No - Other Health History Other Health History: wears glasses. chronic pain - Chronic Pain History Chronic Pain: Yes (chronic pain, headaches) - Surgical History Prior Surgeries: HYSTERECTOMY 12/11/17 AT [facility]. C1 LAMINECTOMY 10/22/17. tonsillectomy. tubal LIGATION ANE Review of Systems Review of Systems: - Exercise capacity METS (RN): 4 METS ANE Patient History - Allergies Allergies/Adverse Reactions: bupropion [From Wellbutrin] Allergy (Verified 12/29/17 10:54) Vomiting carbamazepine [From Tegretol] Allergy (Verified 10/21/17 12:42) feels like bugs are crawling on her duloxetine [From Cymbalta] Allergy (Verified 12/29/17 10:54) Vomiting ketamine Allergy (Verified 12/29/17 10:54) Other-Enter Comments sertraline [From Zoloft] Allergy (Verified 12/29/17 10:54) Vomiting - Home Medications Home medications: home medication list seen and reviewed Home Medications: Abacavir/Dolutegravir/Lamivudi [Triumeq Tablet] 1 each PO DAILY@0730 10/22/17 [ Last Taken 01/07/18 07:00] Amitriptyline HCl [Elavil 50 mg (*)] 75 mg PO HS 10/22/17 [Last Taken 01/06/18 21:30] Meloxicam 15 mg PO DAILY 10/22/17 [Last Taken 01/01/18] Methocarbamol [Robaxin 750 mg (*)] 1,500 mg PO TID 10/22/17 [Last Taken 07:00] Pregabalin [Lyrica 150mg (*)] 150 mg PO HS 10/22/17 [Last Taken 01/06/18 21:30] Acetaminophen [Tylenol 325mg (*)] 325 mg PO Q4HRS PRN 12/29/17 [Last Taken 01/06 21:30] Dexamethasone [Decadron 2 MG (*)] 2 - 4 mg PO DAILY 12/29/17 [Last Taken 21:30] Hydrocodone/Acetaminophen [[place] 5/325 (*)] 1 - 2 tab PO Q4-6PRN PRN 12/29/17 [ Last Taken 12/28/17] oxyCODONE/APAP 5/325 [Percocet 5/325 (*)] 1 - 2 tab PO Q4H PRN 01/07/18 [Last Taken 01/06/18 20:30] - NPO status NPO Status: no food or drink >8 hours NPO Since - Liquids (Date): 01/07/18 NPO Since - Liquids (Time): 07:00 NPO Since - Solids (Date): 01/06/18 NPO Since - Solids (Time): 23:30 - Anes Hx Anes Hx: post operative nausea - Smoking Hx Smoking Status: Light smoker Marijuana use: Yes - Alcohol Use Alcohol Use: None - Family Anes Hx Family Anes Hx: none Family Hx Anesthesia Complications: none ANE Labs/Vital Signs - Labs Result Diagrams: 01/07/18 10:13 - Vital Signs Blood Pressure: 124/84 Heart Rate: 77 Respiratory Rate: 20 O2 Sat (%): 95 Height: 176.53 cm Weight: 108.862 kg ANE Physical Exam - Airway Neck exam: decreased ROM Mallampati Score: Class 2 Mouth exam: normal dental/mouth exam - Pulmonary Pulmonary: no respiratory distress, no rales or rhonchi - Cardiovascular Cardiovascular: regular rate and rhythym, no murmur, rub, or gallop ANE Anesthesia Plan Anesthesia Plan: general endotracheal anesthesia
[2018-01-07] MEDS ORDERED: CHLORHEXIDINE GLUC HIBICLENS 118 ML BTL TP ONE (12:32)
[2018-01-07] MEDS ORDERED: SURGIFLO MATRIX KIT WITH THROMBIN 8 ML TP ONE (12:32)
[2018-01-07] MEDS ORDERED: BACITRACIN ZINC 14.2 GM OINTTUBE TP ONE (12:32)
[2018-01-07] MEDS ORDERED: LIDOCAINE/EPINEPHRINE 0.5% 50 ML MDV ONE (12:33)
[2018-01-07] MEDS ORDERED: THROMBIN (BOVINE) 5,000 UNIT VIAL TP ONE (12:33)
[2018-01-07] MEDS ORDERED: GENTAMICIN SULFATE 80 MG/2 ML VIAL ONE (12:33)
[2018-01-07] MEDS ORDERED: LIDO/EPI 1% **for epidural** 30 ML SDV ONE (12:34)
[2018-01-07] MEDS ORDERED: fentaNYL 250 MCG/5 ML INJ ONE (12:43)
[2018-01-07] MEDS ORDERED: PROPOFOL/EMULSION 500 MG/50 ML BOTTLE IV ONE ×2 (13:02)
[2018-01-07] MEDS ORDERED: fentaNYL 100 MCG/2 ML INJ ONE ×2 (13:07)
[2018-01-07] MEDS ORDERED: DEXAMETHASONE 4 MG/ML VIAL ONE (13:23)
[2018-01-07] MEDS ORDERED: ONDANSETRON 4 MG/2 ML VIAL ONE (13:23)
[2018-01-07] MEDS ORDERED: GLYCOPYRROLATE 0.2 MG/1 ML VIAL ONE (13:23)
[2018-01-07] MEDS ORDERED: ROCURONIUM 100 MG/10 ML VIAL ONE (13:23)
[2018-01-07] MEDS ORDERED: KETOROLAC 30 MG/1 ML SDV ONE (14:40)
[2018-01-07] MEDS ORDERED: SUGAMMADEX SODIUM 200 MG/2 ML VIAL IVP ONE (14:56)
[2018-01-07] MEDS ORDERED: LACTULOSE 20 GM/30 ML UDCUP PO PRN (14:58)
[2018-01-07] MEDS ORDERED: MAGNESIUM HYDROXIDE 30 ML UDCUP PO PRN (14:58)
[2018-01-07] MEDS ORDERED: PROMETHAZINE HCL 25 MG/ML INJ IVP PRN (14:58)
[2018-01-07] MEDS ORDERED: BISACODYL 10 MG SUPP PR PRN (14:58)
[2018-01-07] MEDS ORDERED: POLYETHYLENE GLYCOL 3350 17 GM PKT PO PRN (14:58)
[2018-01-07] MEDS ORDERED: NS W/ 20 KCl/L 1,000 ML IV SCH (15:00)
[2018-01-07] MEDS ORDERED: NALOXONE HCL 0.4 MG/ML INJ IVP PRN (15:02)
[2018-01-07] MEDS ORDERED: DIAZEPAM 5 MG/ML 1 ML SYR IVP PRN (15:02)
[2018-01-07] MEDS ORDERED: fentaNYL 100 MCG/2 ML INJ IVP PRN (15:02)
[2018-01-07] MEDS ORDERED: ALBUTEROL 3 ML DEYVIAL IH PRN (15:02)
[2018-01-07] MEDS ORDERED: ONDANSETRON 4 MG/2 ML VIAL IVP PRN (15:02)
[2018-01-07] MEDS ORDERED: MEPERIDINE 25 MG/0.5 ML AMP IVP PRN (15:02)
[2018-01-07] MEDS: HYDROmorphONE/DILAUDID 1 MG/ML INJ IVP PRN ×2 (15:09→15:44)
--- NOTE | 2018-01-07 15:10 | GOP ---
DATE OF OPERATION: 01/07/2018 SURGEON: Sreedhar Dobbins MD SQL REPORT WRITER: YASMINE Gibbons. ANESTHESIA: General endotracheal. PREOPERATIVE DIAGNOSIS: Post Chiari decompression with pseudomeningocele and pain in the occipital a kobe. POSTOPERATIVE DIAGNOSIS: Post Chiari decompression with pseudomeningocele and pain in the occipital area. PROCEDURE PERFORMED: 1. Fluoroscopic placement of lumbar drain. 2. Revision of suboccipital decompression for Chiari malformation with repair of pseudomeningocele. 3. Use of the operative microscope. FINDINGS: A successful Chiari revision. SPECIMENS: There were no specimens. ESTIMATED BLOOD LOSS: 50 cc. Fluids and urine output per the Anesthesia record. INDICATIONS: The patient is a 37-year-old woman with a large Chiari malformation and syringomyelia, which was decompressed approximately 2 months ago. Her Chiari symptoms have improved but she has had a lot of pain in the occipital area and has a clearly palpable pseudomeningocele in the area. I sharif d her that I was not certain that this would solve her symptoms, but we could certainly try by repair ing the pseudomeningocele and see if these symptoms would resolve. She presents electively for this procedure today. DESCRIPTION OF PROCEDURE: After informed consent was obtained from the patient, the patient was brou ght to the operating room and a formal time-out was performed, identifying the patient by name, medic al record number and date of . Preoperative antibiotics were given. The endotracheal tube was placed and general endotracheal anesthesia was smoothly induced. The patient's head was placed in th e Yang pins. She was turned to the prone position on a standard table. All appropriate pressure points were padded and checked. The lumbar region was then prepped and draped in the normal sterile fashion and fluoroscopy was used to identify the interspace between L4 and L5. A 14-gauge Touhy nee dle was then used to gain access into the CSF space at L4-5 and clear CSF was returned. A lumbar quincy in catheter was then passed through the needle to a depth of about 25 cm at the skin. The needle was then removed and the guidewire was removed and clear CSF drainage was seen from the lumbar drain. A t this point, it was secured to the skin using nylon suture and was sterilely dressed. Next, the head was slightly flexed exposing the suboccipital wound. The hair was clipped around the area of the incision. The head was prepped and draped in the normal sterile fashion. The skin incis ion was made using a 10 blade. The subcutaneous tissues were dissected using monopolar electrocauter y. When we entered the pseudomeningocele, a lot of clear CSF was expressed without any sign of blood or other infection. This CSF was suctioned away and self-retaining retractors were placed. The sut ure line of the triangular shaped duraplasty was inspected. On the lateral side around the area of t he foramen magnum, especially on the right side, a very small 1 mm area appeared to be briskly leakin g CSF. This was closed with a few interrupted 6-0 Prolene sutures. We then inspected the remainder of the incision line and a small amount of leak was seen from a few of the stitch holes. These were also closed again with 6-0 Prolene. No further leakage of CSF was seen. Valsalva up to 35 mmHg was held and again no leakage was seen from any site. The dural closure was then covered with onlay Dura Gen which would hopefully form a blood patch. This was held in place with some more DuraSeal over th e top. At this point, the fascia was closed in a watertight fashion using interrupted 2-0 PDS suture s. The deep dermis was closed using interrupted 2-0 PDS. The skin was closed using interrupted 3-0 Prolene sutures. Sterile dressings were placed. The patient was returned back into the supine posit ion. The Yang pins were removed and she was extubated. She was then transferred to the PACU in stable condition. There were no operative complications. I was scrubbed and present for the entire procedure. All sponge and needle counts were correct at the end of the case. DRAIN: Lumbar drain. /[id number]/MODL
[2018-01-07] MEDS: SCOPOLAMINE HYDROBROMIDE 1 MG/3 DAYS PATCH TD SCH (15:16)
--- NOTE | 2018-01-07 15:17 | POSTOPPROG ---
Post Op Note Date of Operation: 01/07/18 Surgeon: Sreedhar Dobbins [place] Weaver: Dorinda Grady Anesthesia: GET(General Endotracheal) Pre-op Diagnosis: CSF leak following chiari decompression Post-op Diagnosis: same Procedure: Sp Chiari revision for repair of CSF leak Inf/Abcess present in the surg proc area at time of surgery?: No Depth: Organ Space EBL: Minimal Complications: None. Successful repair of CSF leak SOAP Progress Note Assessment/Plan: Assessment: Plan: 01/07/18 15:18 S: Patient in ICU. Tearful but stable with expected neck pain O: NAD, VSS, CN II-XII grossly intact PERRL, EOMI DE [place] TORRE X 4 with full strength Incision c/d/i- telfa in place Lumbar Drain in place and well secured A: 37 yo female sp chiari wound exploration for CSF leak repair P: -Admit to ICU -Lumbar Drain goal 10ml/hr -Optimize pain management- scheduled robaxin, tylenol, ibuprofen. Narcotics only for pain above and beyond -If headaches are worsening, may decrease drainage to 8, it leak or incision looks full, need to increase to 12 -Monitor incision for signs of CSF leak -PT/OT -Can be up to ambulate just clamp drain at all times except when draining 10ml/ hr -Plan to clamp drain after 4-5 days -[place] POD #1 -Call with any questions or concerns. Objective: Vital Signs Temp Pulse Resp BP Pulse Ox 36.8 C 103 H 10 L 124/84 H 99 01/07/18 15:00 01/07/18 15:00 01/07/18 15:00 01/07/18 12:30 01/07/18 15:00 Laboratory Results 01/07/18 10:13 01/06/18 01/07/18 01/08/18 05:59 05:59 05:59 Output Total 15 Balance -15
--- NOTE | 2018-01-07 15:29 | PDMN ---
Medical Necessity Medical necessity: Pt meets IP criteria per PA; est los >2 mn for eval/tx of CSF leak s/p chiari malformation decompression; requiring further ICU monitoring , surgical revision & drain placement
[2018-01-07] MEDS: METHOCARBAMOL 750 MG TAB PO SCH ×2 (15:45→20:05)
[2018-01-07] MEDS: POLYETHYLENE GLYCOL 3350 17 GM PKT PO SCH ×2 (16:11→21:03)
[2018-01-07] MEDS: ACETAMINOPHEN 325 MG TAB PO SCH ×2 (17:01→21:03)
[2018-01-07] MEDS: DEXAMETHASONE 2 MG TAB PO PRN (17:54)
[2018-01-07] MEDS: AMITRIPTYLINE HCL 50 MG TAB PO SCH (20:03)
[2018-01-07] MEDS: SENNOSIDES/DOCUSATE SODIUM TAB PO SCH (20:05)
[2018-01-07] MEDS: FAMOTIDINE 20 MG TAB PO SCH (20:05)
[2018-01-07] MEDS: PREGABALIN 150 MG CAP PO SCH (20:06)
[2018-01-07] MEDS: oxyCODONE IR 5 MG TAB PO PRN (20:06)
[2018-01-07] MEDS ORDERED: IBUPROFEN 800 MG TAB PO SCH (21:00)
[2018-01-07] MEDS: IBUPROFEN 800 MG TAB PO SCH (21:03)
[2018-01-07] MEDS: diphenhydrAMINE 25 MG CAP PO PRN (21:03)
[2018-01-08] MEDS: oxyCODONE IR 5 MG TAB PO PRN ×6 (00:05→21:34)
[2018-01-08] MEDS: IBUPROFEN 800 MG TAB PO SCH ×4 (01:49→20:09)
[2018-01-08] MEDS: ACETAMINOPHEN 325 MG TAB PO SCH ×6 (01:49→21:34)
[2018-01-08] MEDS: METHOCARBAMOL 750 MG TAB PO SCH ×4 (06:05→20:09)
[2018-01-08] MEDS: DOLUTEGRAVIR PO SCH (07:27)
[2018-01-08] MEDS: DEXAMETHASONE 2 MG TAB PO PRN ×2 (07:27→20:09)
[2018-01-08] MEDS: LAMIVUDI PO SCH (07:27)
[2018-01-08] MEDS: ABACAVIR PO SCH (07:27)
--- NOTE | 2018-01-08 08:05 | NEUSURGPN ---
Assessment/Plan: A: 37 yo female sp chiari wound exploration for CSF leak repair POD#1 P: -Admit to ICU -Lumbar Drain goal - change to 12ml/hr per Dr Dobbins. -Optimize pain management- scheduled robaxin, tylenol, ibuprofen. Narcotics only for pain above and beyond. Continue current regimen. Will check with pharmacy about increasing robaxin -Monitor incision for signs of CSF leak - dry this am -PT/OT -Can be up to ambulate just clamp drain at all times except when draining 12ml/ hr -Plan to clamp drain after 4-5 days -Lovenox POD #1 -Call with any questions or concerns. D/w Dr Dobbins Subjective: Pt resting in bed, c/o burning pain in back of neck Objective: AAOx3 NAD VSS CN II-XII grossly intact MAEx4 5/5 BUE/BLE Incision dressed cdi LD with clear CSF in bag draining well Urinary Catheter in Place: No - Physician Discussed Patient with Dr.: Dobbins Neurosurgery Physical Exam - Vitals, I&O, Labs I and O 01/07/18 01/08/18 01/09/18 05:59 05:59 05:59 Intake Total 2440 Output Total 152 20 Balance 2288 -20 Weight 108.862 kg Intake: Oral (ml) 2155 IV Intake (ml) 285 Output: CSF Drainage Amount 152 20 Lumbar Drain 152 20 Other: Number of Voids Toilet 1 Number of Stools Toilet 0 Vital Signs Temp Pulse Resp BP Pulse Ox 36.7 C 70 18 133/72 H 99 01/08/18 00:00 01/08/18 07:00 01/08/18 07:00 01/08/18 07:00 01/08/18 07:00 Laboratory Results 01/07/18 10:13 ICD10 Worksheet Patient Problems: Problems Problem Status Onset Arnold-Chiari malformation, type I Acute Dizziness Acute Headache Acute Nausea Acute
[2018-01-08] MEDS: FAMOTIDINE 20 MG TAB PO SCH ×2 (08:20→20:09)
[2018-01-08] MEDS: ENOXAPARIN 40 MG/0.4 ML SYR SC SCH (08:21)
[2018-01-08] MEDS: PREGABALIN 150 MG CAP PO SCH ×2 (08:21→20:09)
[2018-01-08] MEDS: SENNOSIDES/DOCUSATE SODIUM TAB PO SCH ×2 (08:21→20:10)
[2018-01-08] MEDS: POLYETHYLENE GLYCOL 3350 17 GM PKT PO SCH ×3 (08:22→23:09)
--- NOTE | 2018-01-08 14:40 | ASMTCMCOM ---
CM Note CM Note Notes: Patient reviewed in rounds s/p CSF leak repair. No needs identified at this time. CM available should needs arise. Plan: likely to dc home independently. Date Signed: 01/08/2018 02:39 PM Electronically Signed By:Fariha Lopez RN
[2018-01-08] MEDS: AMITRIPTYLINE HCL 50 MG TAB PO SCH (20:10)
[2018-01-08] MEDS: diphenhydrAMINE 25 MG CAP PO PRN (21:37)
[2018-01-09] MEDS: ACETAMINOPHEN 325 MG TAB PO SCH ×6 (02:10→21:28)
[2018-01-09] MEDS: oxyCODONE IR 5 MG TAB PO PRN ×4 (02:10→19:23)
[2018-01-09] MEDS: IBUPROFEN 800 MG TAB PO SCH ×4 (02:11→21:27)
[2018-01-09] MEDS: METHOCARBAMOL 750 MG TAB PO SCH ×4 (06:02→21:27)
--- NOTE | 2018-01-09 06:03 | NEUSURGPN ---
Assessment/Plan: A: 37 yo female sp chiari wound exploration for CSF leak repair POD1 P: -Continue Lumbar Drain goal 10ml/hr x 5days -Optimize pain management- scheduled robaxin, tylenol, ibuprofen. Narcotics only for pain above and beyond -If headaches are worsening, may decrease drainage to 8, it leak or incision looks full, need to increase to 12 -Monitor incision for signs of CSF leak -PT/OT -Can be up to ambulate just clamp drain at all times except when draining 10ml/ hr -DVT prophx: TEDs, SCDs, Lovenox POD #1 -Call with any questions or concerns. Subjective: Incisional/neck TTP. Denies any headaches Objective: NAD, VSS, CN II-XII grossly intact PERRL, EOMI DE LA TORRE X 4 with full strength Incision c/d/i- telfa in place Lumbar Drain in place and well secured - Physician Discussed Patient with : [facility] Physical Exam - Vitals, I&O, Labs I and O 01/08/18 01/09/18 01/10/18 05:59 05:59 05:59 Intake Total 2440 2049 Output Total 152 284 Balance 2288 1766 Weight 108.862 kg Intake: Oral (ml) 2155 2050 IV Intake (ml) 285 Output: CSF Drainage Amount 152 284 Lumbar Drain 152 284 Other: Number of Voids Toilet 1 1 Number of Stools Toilet 0 Vital Signs Temp Pulse Resp BP Pulse Ox 36.6 C 59 L 12 126/69 H 94 01/09/18 04:00 01/09/18 05:00 01/09/18 05:00 01/09/18 04:00 01/09/18 05:00 Laboratory Results 01/07/18 10:13 ICD10 Worksheet Patient Problems: Problems Problem Status Onset Arnold-Chiari malformation, type I Acute Dizziness Acute Headache Acute Nausea Acute
[2018-01-09] MEDS: ABACAVIR PO SCH (07:48)
[2018-01-09] MEDS: DOLUTEGRAVIR PO SCH (07:48)
[2018-01-09] MEDS: LAMIVUDI PO SCH (07:48)
[2018-01-09] MEDS: POLYETHYLENE GLYCOL 3350 17 GM PKT PO SCH ×2 (08:03→15:17)
[2018-01-09] MEDS: FAMOTIDINE 20 MG TAB PO SCH (08:03)
[2018-01-09] MEDS: ENOXAPARIN 40 MG/0.4 ML SYR SC SCH (08:03)
[2018-01-09] MEDS: PREGABALIN 150 MG CAP PO SCH ×2 (08:04→21:27)
[2018-01-09] MEDS: SENNOSIDES/DOCUSATE SODIUM TAB PO SCH ×2 (08:04→21:27)
[2018-01-09] MEDS: PANTOPRAZOLE SODIUM 40 MG TAB PO SCH (11:01)
--- NOTE | 2018-01-09 14:05 | ASMTCMCOM ---
CM Note CM Note Notes: Discussed patient in ICU rounds. She is stable and lumbar drain to remain in place through Friday. Likely discharge Friday with no current needs identified. CM to follow. Plan: Dc to home independent . Date Signed: 01/09/2018 02:04 PM Electronically Signed By:Fariha Lopez RN
[2018-01-09] MEDS: AMITRIPTYLINE HCL 50 MG TAB PO SCH (21:27)
[2018-01-10] MEDS: oxyCODONE IR 5 MG TAB PO PRN ×5 (00:08→17:08)
[2018-01-10] MEDS: POLYETHYLENE GLYCOL 3350 17 GM PKT PO SCH ×4 (00:25→20:19)
[2018-01-10] MEDS: ACETAMINOPHEN 325 MG TAB PO SCH ×6 (03:21→21:50)
[2018-01-10] MEDS: IBUPROFEN 800 MG TAB PO SCH ×4 (04:03→20:16)
[2018-01-10] MEDS: METHOCARBAMOL 750 MG TAB PO SCH ×4 (06:10→20:16)
[2018-01-10] MEDS: DEXAMETHASONE 2 MG TAB PO PRN ×2 (06:44→20:19)
[2018-01-10] MEDS: DOLUTEGRAVIR PO SCH (08:12)
[2018-01-10] MEDS: ABACAVIR PO SCH (08:12)
[2018-01-10] MEDS: LAMIVUDI PO SCH (08:12)
[2018-01-10] MEDS: SENNOSIDES/DOCUSATE SODIUM TAB PO SCH ×2 (08:13→20:16)
[2018-01-10] MEDS: PANTOPRAZOLE SODIUM 40 MG TAB PO SCH (08:13)
[2018-01-10] MEDS: PREGABALIN 150 MG CAP PO SCH ×2 (08:13→20:16)
[2018-01-10] MEDS: ENOXAPARIN 40 MG/0.4 ML SYR SC SCH (08:15)
--- NOTE | 2018-01-10 08:59 | NEUSURGPN ---
Assessment/Plan: A: 37 yo female sp chiari wound exploration for CSF leak repair P: -Continue Lumbar Drain goal 10ml/hr x 5days -Optimize pain management- scheduled robaxin, tylenol, ibuprofen. Narcotics only for pain above and beyond -If headaches are worsening, may decrease drainage to 8, it leak or incision looks full, need to increase to 12 -Monitor incision for signs of CSF leak -PT/OT -Can be up to ambulate just clamp drain at all times except when draining 12ml/ hr -DVT prophx: TEDs, SCDs, Lovenox -Call with any questions or concerns. Subjective: Incisional/neck TTP. Denies any headaches Objective: NAD, VSS, CN II-XII grossly intact PERRL, EOMI DE LA TORRE X 4 with full strength Incision c/d/i- telfa in place Lumbar Drain in place and well secured - Physician Discussed Patient with : [facility] Physical Exam - Vitals, I&O, Labs I and O 01/09/18 01/10/18 01/11/18 05:59 05:59 05:59 Intake Total 2550 2500 Output Total 284 255 24 Balance 2266 2245 -24 Intake: Oral (ml) 2550 2500 Output: Urine (ml) 3 Toilet 3 CSF Drainage Amount 284 252 24 Lumbar Drain 284 252 24 Other: Number of Voids Toilet 1 1 Number of Stools Toilet 0 1 Vital Signs Temp Pulse Resp BP Pulse Ox 36.7 C 63 12 105/63 98 01/10/18 08:00 01/10/18 08:00 01/10/18 08:00 01/10/18 08:00 01/10/18 08:00 Laboratory Results 01/07/18 10:13 ICD10 Worksheet Patient Problems: Problems Problem Status Onset Arnold-Chiari malformation, type I Acute Dizziness Acute Headache Acute Nausea Acute
--- NOTE | 2018-01-10 09:56 | PDINTPN ---
Dry Kiln Feeder Progress Note Assessment/Plan: 37 F with recent chiari malformation repair complicated by CSF leak and pseudomeningocele, s/p repair 01/07/18 without complications and lumbar drain placement. Planned continuous drainage for about 5 days. * CSF leak s/p repair. Clinically stable * Pruritus- may clear up with shower or sponge bath as no discernable rash on exam. Less likely drug reaction or allergic. * Depression- stable Subjective: complains of itching globally, mostly around adhesive sites. No ORDOÑEZ Objective: Vital Signs Temp Pulse Resp BP Pulse Ox 36.7 C 62 12 105/63 98 01/10/18 08:00 01/10/18 09:00 01/10/18 08:00 01/10/18 08:00 01/10/18 08:00 Laboratory Results 01/07/18 10:13 01/09/18 01/10/18 01/11/18 05:59 05:59 05:59 Intake Total 2550 2500 Output Total 284 255 36 Balance 2266 2245 -36 Physical Exam - Physical Exam General Appearance: alert, no apparent distress, obese EENT: PERRL/EOMI Neck: supple, other (incision clean and dry) Respiratory: lungs clear, normal breath sounds, No respiratory distress, No accessory muscle use Cardiac/Chest: regular rate, rhythm, No edema Abdomen: non-tender, soft, No distended Skin: normal color, warm/dry, No cyanosis, No diaphoresis, No mottled, No rash Lymphatic: no adenopathy Extremities: No pedal edema Neuro/Psych: alert, normal mood/affect, oriented x 3 ICD10 Worksheet Patient Problems: Problems Problem Status Onset Arnold-Chiari malformation, type I Acute Dizziness Acute Headache Acute Nausea Acute
[2018-01-10] MEDS: SCOPOLAMINE HYDROBROMIDE 1 MG/3 DAYS PATCH TD SCH (13:08)
[2018-01-10] MEDS: AMITRIPTYLINE HCL 50 MG TAB PO SCH (20:16)
[2018-01-10] MEDS: diphenhydrAMINE 25 MG CAP PO PRN (20:19)
[2018-01-10] MEDS: ONDANSETRON 4 MG/2 ML VIAL IVP PRN (20:19)
[2018-01-11] MEDS: IBUPROFEN 800 MG TAB PO SCH ×4 (02:05→20:13)
[2018-01-11] MEDS: ACETAMINOPHEN 325 MG TAB PO SCH ×6 (02:05→21:54)
[2018-01-11] MEDS: oxyCODONE IR 5 MG TAB PO PRN ×5 (05:16→21:53)
[2018-01-11] MEDS: METHOCARBAMOL 750 MG TAB PO SCH ×4 (05:16→20:13)
[2018-01-11] MEDS: LAMIVUDI PO SCH (07:10)
[2018-01-11] MEDS: ABACAVIR PO SCH (07:10)
[2018-01-11] MEDS: DOLUTEGRAVIR PO SCH (07:10)
[2018-01-11] MEDS: PREGABALIN 150 MG CAP PO SCH ×2 (09:13→20:13)
[2018-01-11] MEDS: SENNOSIDES/DOCUSATE SODIUM TAB PO SCH ×2 (09:13→19:10)
[2018-01-11] MEDS: ENOXAPARIN 40 MG/0.4 ML SYR SC SCH (09:14)
[2018-01-11] MEDS: POLYETHYLENE GLYCOL 3350 17 GM PKT PO SCH ×3 (09:14→19:10)
[2018-01-11] MEDS: PANTOPRAZOLE SODIUM 40 MG TAB PO SCH (09:14)
--- NOTE | 2018-01-11 10:08 | NEUSURGPN ---
Assessment/Plan: A: 37 yo female sp chiari wound exploration for CSF leak repair P: -Continue Lumbar Drain goal 10ml/hr x 5days. Will clamp tomorrow with pans to liekly d/c Friday -Optimize pain management- scheduled robaxin, tylenol, ibuprofen. Narcotics only for pain above and beyond -If headaches are worsening, may decrease drainage to 8, it leak or incision looks full, need to increase to 12 -Monitor incision for signs of CSF leak -PT/OT -Can be up to ambulate just clamp drain at all times except when draining 12ml/ hr -DVT prophx: TEDs, SCDs, Lovenox (HOLD LOVENOX ON FRIDAY for LD pull Friday) -Call with any questions or concerns. Subjective: Incisional/neck TTP. Denies any headaches. Some low back discomfort from the LD Objective: NAD, VSS, CN II-XII grossly intact PERRL, EOMI DE LA TORRE X 4 with full strength Incision c/d/i- - Physician Discussed Patient with : [facility] Physical Exam - Vitals, I&O, Labs I and O 01/10/18 01/11/18 01/12/18 05:59 05:59 05:59 Intake Total 2500 1500 240 Output Total 255 276 39 Balance 2245 1224 201 Intake: Oral (ml) 2500 1500 240 Output: Urine (ml) 3 Toilet 3 CSF Drainage Amount 252 276 39 Lumbar Drain 252 276 39 Other: Intake Quantity Yes Sufficient Number of Voids Toilet 1 1 Number of Stools Toilet 1 1 Vital Signs Temp Pulse Resp BP Pulse Ox 36.6 C 82 14 112/75 96 01/11/18 08:00 01/11/18 09:00 01/11/18 08:00 01/11/18 08:00 01/11/18 08:00 Laboratory Results 01/07/18 10:13 ICD10 Worksheet Patient Problems: Problems Problem Status Onset Arnold-Chiari malformation, type I Acute Dizziness Acute Headache Acute Nausea Acute
--- NOTE | 2018-01-11 13:31 | PDINTPN ---
Pipe Threader Progress Note Assessment/Plan: 37 F with recent chiari malformation repair complicated by CSF leak and pseudomeningocele, s/p repair 01/07/18 without complications and lumbar drain placement. Planned continuous drainage for about 5 days. * CSF leak s/p repair. Clinically stable. Plan to clamp lumbar drain tomorrow and possible dc friday. Patient said her pain was improved after repair. * Pruritus- may clear up with shower or sponge bath as no discernable rash on exam. Less likely drug reaction or allergic. * Depression- stable * Cough- this was mild and improved with change from H2 to PPI * HIV- undetecable viral load. Continue HARRT. 01/11/18 13:28 Subjective: c/o low back pain and neck pain, but manageable Objective: Vital Signs Temp Pulse Resp BP Pulse Ox 36.6 C 88 14 114/67 95 01/11/18 12:00 01/11/18 13:00 01/11/18 12:00 01/11/18 12:00 01/11/18 12:00 Laboratory Results 01/07/18 10:13 01/10/18 01/11/18 01/12/18 05:59 05:59 05:59 Intake Total 2500 1500 240 Output Total 255 276 87 Balance 2245 1224 153 Physical Exam - Physical Exam General Appearance: WD/WN, alert, no apparent distress, obese EENT: PERRL/EOMI Neck: supple, other (incision clean and dry) Respiratory: lungs clear, normal breath sounds, No respiratory distress, No accessory muscle use Cardiac/Chest: regular rate, rhythm, No edema Abdomen: non-tender, soft, No distended Skin: normal color, warm/dry, No cyanosis Lymphatic: no adenopathy Extremities: No pedal edema Neuro/Psych: alert, normal mood/affect, oriented x 3 ICD10 Worksheet Patient Problems: Problems Problem Status Onset Arnold-Chiari malformation, type I Acute Dizziness Acute Headache Acute Nausea Acute
[2018-01-11] MEDS: DEXAMETHASONE 2 MG TAB PO PRN (19:10)
[2018-01-11] MEDS: ONDANSETRON 4 MG/2 ML VIAL IVP PRN (19:10)
[2018-01-11] MEDS: AMITRIPTYLINE HCL 50 MG TAB PO SCH (20:13)
[2018-01-11] MEDS: diphenhydrAMINE 25 MG CAP PO PRN (20:13)
[2018-01-12] MEDS: ACETAMINOPHEN 325 MG TAB PO SCH ×6 (03:25→19:46)
[2018-01-12] MEDS: METHOCARBAMOL 750 MG TAB PO SCH ×4 (04:57→19:44)
[2018-01-12] MEDS: IBUPROFEN 800 MG TAB PO SCH ×4 (04:57→19:46)
[2018-01-12] MEDS: oxyCODONE IR 5 MG TAB PO PRN ×4 (04:58→19:45)
[2018-01-12] MEDS: ONDANSETRON 4 MG/2 ML VIAL IVP PRN (04:58)
[2018-01-12] MEDS: DOLUTEGRAVIR PO SCH (08:08)
[2018-01-12] MEDS: LAMIVUDI PO SCH (08:08)
[2018-01-12] MEDS: ABACAVIR PO SCH (08:08)
[2018-01-12] MEDS: PREGABALIN 150 MG CAP PO SCH ×2 (08:09→19:47)
[2018-01-12] MEDS: SENNOSIDES/DOCUSATE SODIUM TAB PO SCH ×2 (08:09→20:37)
[2018-01-12] MEDS: PANTOPRAZOLE SODIUM 40 MG TAB PO SCH (08:09)
[2018-01-12] MEDS: ENOXAPARIN 40 MG/0.4 ML SYR SC SCH (08:10)
[2018-01-12] MEDS: POLYETHYLENE GLYCOL 3350 17 GM PKT PO SCH ×3 (08:10→20:37)
--- NOTE | 2018-01-12 08:35 | NEUSURGPN ---
Assessment/Plan: A: 37 yo female sp chiari wound exploration for CSF leak repair P: -Clamp Lumbar Drain, plans to likely d/c Friday. Monitor for any new incisional leaking/swelling. -Optimize pain management- scheduled robaxin, tylenol, ibuprofen. Narcotics only for pain above and beyond -Monitor incision for signs of CSF leak -PT/OT -DVT prophx: TEDs, SCDs, HOLD LOVENOX for LD pull tomorrow -Call with any questions or concerns. Subjective: Incisional/neck TTP. Denies any headaches. Some low back discomfort from the LD Objective: NAD, VSS, CN II-XII grossly intact PERRL, EOMI DE LA TORRE X 4 with full strength Incision c/d/i- - Physician Discussed Patient with : [facility] Physical Exam - Vitals, I&O, Labs I and O 01/11/18 01/12/18 01/13/18 05:59 05:59 05:59 Intake Total 1500 2240 Output Total 276 285 24 Balance 1224 1955 -24 Intake: Oral (ml) 1500 2240 Output: CSF Drainage Amount 276 285 24 Lumbar Drain 276 285 24 Other: Intake Quantity Yes Yes Sufficient Number of Voids Toilet 1 3 Number of Stools Toilet 1 0 Vital Signs Temp Pulse Resp BP Pulse Ox 36.8 C 68 19 128/81 H 96 01/12/18 08:00 01/12/18 08:00 01/12/18 08:00 01/12/18 08:00 01/12/18 08:00 Laboratory Results 01/07/18 10:13 ICD10 Worksheet Patient Problems: Problems Problem Status Onset Arnold-Chiari malformation, type I Acute Dizziness Acute Headache Acute Nausea Acute
--- NOTE | 2018-01-12 12:12 | ASMTCMCOM ---
CM Note CM Note Notes: Lumbar drain to be clamped today. PT has discharged patient-no therapy needs for home. Possible discharge Friday. Date Signed: 01/12/2018 12:11 PM Electronically Signed By:Imani Alba LCSW
--- NOTE | 2018-01-12 15:32 | PDINTPN ---
Senior Technical Manager Progress Note Assessment/Plan: Assessment: 37 F with recent chiari malformation repair complicated by CSF leak and pseudomeningocele, s/p repair 01/07/18 without complications and lumbar drain placement. Planned continuous drainage for about 5 days. * CSF leak s/p repair. Clinically stable. Plan to clamp lumbar drain today and possible dc friday. Patient said her pain was improved after repair. * Pruritus- Improved, now jus localized to are of adhesive tape * Depression- stable * Cough- this was mild and improved with change from H2 to PPI * HIV- undetectable viral load. Continue HARRT. * Constipation: Resolved with bowel regimen Plan: Continue pain control. Benadryl PRN. Activity as tolerated. Hopefully discharge tomorrow. 01/12/18 15:32 Subjective: Feels OK. Sore pruritus around drain adhesive tape, otherwise denies. Constipation resolved. No ORDOÑEZ Objective: Vital Signs Temp Pulse Resp BP Pulse Ox 36.8 C 85 13 128/82 H 96 01/12/18 08:00 01/12/18 14:00 01/12/18 14:00 01/12/18 12:00 01/12/18 14:00 Laboratory Results 01/07/18 10:13 01/11/18 01/12/18 01/13/18 05:59 05:59 05:59 Intake Total 1500 2240 Output Total 276 285 24 Balance 1224 1955 Physical Exam - Physical Exam General Appearance: alert, no apparent distress EENT: normal ENT inspection Neck: normal inspection Respiratory: lungs clear, normal breath sounds Cardiac/Chest: normal peripheral pulses, regular rate, rhythm Abdomen: normal bowel sounds, non-tender Skin: normal color, warm/dry Extremities: normal inspection Neuro/Psych: alert, normal mood/affect, oriented x 3 ICD10 Worksheet Patient Problems: Problems Problem Status Onset Arnold-Chiari malformation, type I Acute Dizziness Acute Headache Acute Nausea Acute
[2018-01-12] MEDS: ONDANSETRON DISINTEGRATING 4 MG TAB PO PRN (15:40)
--- NOTE | 2018-01-12 16:42 | POSTANESTH ---
Post Anesthetic Evaluation Cardiovascular Status: Normal, Stable Respiratory Status: Tx Decrease in SpO2 (RA sats to 73 improved with IS) Level of Consciousness/Mental Status: Can Participate in Eval Pain Control: Adequate, Prn Tx Ordered Nausea/Vomiting Control: Adequate, Prn Tx Ordered Complications Possibly Related to Anesthesia: None Noted
[2018-01-12] MEDS: DEXAMETHASONE 2 MG TAB PO PRN (18:08)
[2018-01-12] MEDS: AMITRIPTYLINE HCL 50 MG TAB PO SCH (19:48)
[2018-01-13] MEDS: ACETAMINOPHEN 325 MG TAB PO SCH ×2 (01:21→04:40)
[2018-01-13] MEDS: oxyCODONE IR 5 MG TAB PO PRN (04:38)
[2018-01-13] MEDS: IBUPROFEN 800 MG TAB PO SCH ×2 (04:39→09:12)
[2018-01-13] MEDS: METHOCARBAMOL 750 MG TAB PO SCH (04:40)
[2018-01-13] MEDS: ONDANSETRON DISINTEGRATING 4 MG TAB PO PRN (05:21)
[2018-01-13] MEDS: LAMIVUDI PO SCH (07:17)
[2018-01-13] MEDS: DOLUTEGRAVIR PO SCH (07:17)
[2018-01-13] MEDS: ABACAVIR PO SCH (07:17)
[2018-01-13 08:21] VITALS: BP 116/69
[2018-01-13] MEDS: ENOXAPARIN 40 MG/0.4 ML SYR SC SCH (09:11)
[2018-01-13] MEDS: POLYETHYLENE GLYCOL 3350 17 GM PKT PO SCH (09:13)
[2018-01-13] MEDS: SENNOSIDES/DOCUSATE SODIUM TAB PO SCH (09:13)
[2018-01-13] MEDS: PREGABALIN 150 MG CAP PO SCH (09:14)
[2018-01-13] MEDS: PANTOPRAZOLE SODIUM 40 MG TAB PO SCH (09:14)
--- NOTE | 2018-01-13 09:38 | NEUSURGPN ---
Assessment/Plan: A: 37 yo female sp chiari wound exploration for CSF leak repair P: -Lumbar Drain d/c his am -Optimize pain management- scheduled robaxin, tylenol, ibuprofen. Narcotics only for pain above and beyond -Monitor incision for signs of CSF leak -PT/OT -DVT prophx: TEDs, SCDs, HOLD LOVENOX -Call with any questions or concerns. - Dispo planning Subjective: Denies any headaches. Some low back discomfort from the LD - Physician Patient Seen by : [facility] Physical Exam - Vitals, I&O, Labs I and O 01/12/18 01/13/18 01/14/18 05:59 05:59 05:59 Intake Total 2240 2400 Output Total 285 24 Balance 1955 2376 Intake: Oral (ml) 2240 2400 Output: CSF Drainage Amount 285 24 Lumbar Drain 285 24 Other: Intake Quantity Yes Yes Sufficient Number of Voids Toilet 3 4 Number of Stools Toilet 0 1 Vital Signs Temp Pulse Resp BP Pulse Ox 36.8 C 55 L 16 116/69 94 01/13/18 08:00 01/13/18 08:00 01/13/18 08:00 01/13/18 08:00 01/13/18 08:00 Laboratory Results 01/07/18 10:13 ICD10 Worksheet Patient Problems: Problems Problem Status Onset Arnold-Chiari malformation, type I Acute Dizziness Acute Headache Acute Nausea Acute
[2018-01-13] MEDS ORDERED: oxyCODONE IR 5 MG TAB PO ONE (09:52)
== END 2018-01-13 09:56 | disposition home or self-care (01) | DRG 21 ==
LOC: F3N 01-07 09:04 → F2N 01-07 10:34
PROVIDERS: ADMIT Neurological Surgery; ATTEND Neurological Surgery
PROC: 00Q20ZZ Repair Dura Mater, Open Approach (ICD-10-PCS; principal; 2018-01-07 11:00)
PROC: 009U00Z Drainage of Spinal Canal with Drainage Device, Open Approach (ICD-10-PCS; principal; 2018-01-07 11:00)
DX: G96.19 Other disorders of meninges, not elsewhere classified (principal); F32.9 Major depressive disorder, single episode, unspecified; L29.9 Pruritus, unspecified; R05 Cough; Z21 Asymptomatic human immunodeficiency virus [HIV] infection status; K59.00 Constipation, unspecified
CPT/HCPCS: 97161-GP; J0690; J1100; J1170; J1200; J1580; J1650; J1885; J2250; J2270; J2405; J2704; J3010; J3360

== ENCOUNTER 2018-01-21 14:52 | Day surgery (SDC) | payer MEDICAID ==
[2018-01-21] MEDS ORDERED: ONDANSETRON 4 MG/2 ML VIAL IVP PRN (18:06)
[2018-01-21 19:10] VITALS: BP 114/79
[2018-01-22] MEDS ORDERED: IOPAMIDOL (ISOVUE-M 300) 15 ML VIAL ONE (14:37)
== END 2018-01-21 19:22 | disposition home or self-care (01) ==
LOC: FIMAGING 14:52
PROVIDERS: ATTEND Physician Assistant
PROC: 3E0S3GC Introduction of Other Therapeutic Substance into Epidural Space, Percutaneous Approach (ICD-10-PCS; principal; 2018-01-21)
DX: G97.1 Other reaction to spinal and lumbar puncture (principal)
CPT/HCPCS: J2405; Q9967